=== PATIENT | male | born 1960 | race Caucasian/White ===

== ENCOUNTER 2025-04-13 12:17 | Inpatient (IN) ==
--- NOTE | 2025-04-13 13:10 | Emergency Department Note ---
Impression & Plan Bilateral leg weakness, Recurrent falls ED Provider Note HISTORY OF PRESENT ILLNESS: Patient is a 64-year-old male presenting with bilateral lower extremity weakness and recurrent falls. Patient reports that over the last few weeks he has been having significant progressive weakness in his bilateral lower extremities. He states that he has been falling frequently. He last fell about 2 weeks ago and was in the [place] emergency department "for a number of days because my CK was so high." He states that he was laying on the ground for over 3 days because he could not get up secondary to his leg weakness. He states that since his discharge from [facility], he has been having recurrent falls. He states his bilateral legs suddenly "give out on me." He states that the other day after an outpatient appointment he had an episode of urinary incontinence. Denies any bowel incontinence or saddle anesthesia. He denies any recent trauma to the back. Denies any new back pain. Denies any numbness or tingling down his extremities. He does report he has chronic neuropathy. He states that his primary care provider referred him to the emergency department secondary to his worsening weakness. On assessment, the patient is complaining of some shortness of breath and is requesting a breathing treatment. He reports a history of asthma. He denies any chest pain, shortness of breath or lightheadedness prior to his falls. He reports that "my legs just randomly give out on me." Denies any fevers or chills. ROS: as above PHYSICAL EXAM: Constitutional: Patient appears in no acute distress. Morbidly obese HENT: Head: Normocephalic and atraumatic. Eyes: EOMI, PERRL Mouth/Throat: Mucous membranes moist. Neck: Trachea midline. Neck supple. Cardiovascular: RRR, No murmurs, rubs or gallops. Intact distal pulses. Pulmonary/Chest: No respiratory distress. Breath sounds clear and equal bilaterally. No wheezes or rales. Abdominal: Abdomen soft, no tenderness, rebound or guarding. Back: No midline spinal tenderness, no paraspinal tenderness, no CVA tenderness. Patient is able to straight leg raise bilaterally. Musculoskeletal: Noted to have skin tears to the lateral bilateral lower legs. Skin: Warm and dry. No rash, erythema, pallor or cyanosis Psychiatric: Appropriate mood and affect for situation. Neurological: Alert and keenly responsive. CN II-XII grossly intact, moving all extremities equally and fully. MDM: - Vitals signs stable. - History obtained via patient. History as above. - Chronic conditions affecting care: HTN; morbid obesity - Differential diagnoses include, but are not limited to: Herniated disc; UTI; CVA; cauda equina; deconditioning - Order placed for continuous cardiac monitoring. At this time, monitor showed rate of 87 bpm with normal sinus rhythm, per my interpretation. - External medical records reviewed. [facility]. Patient had called his primary care provider's office today and was referred to the emergency department given that he is having diffuse weakness and lower extremity weakness. He was referred by his primary doctor for further workup. [facility] vascular surgery office visit note dated 04/08/2025 was reviewed. Patient was seen in clinic after having cardiac duplex ultrasounds during his admission to [facility] on 03/27/2025 that showed less than 50% ICA stenosis bilaterally. He had a creatinine of 0.9 and a CK of 199 on discharge from [facility]. - Laboratory workup interpreted by myself showed leukocytosis (WBC 15.76) with neutrophil predominance; slight hyponatremia (Na 133); elevated CK (319); normal creatinine; normal lipase - UA negative for infection - Patient had just over 300 cc urine in his bladder and after voiding his postvoid residual was 0 cc. - MRI lumbar spine wo contrast showed advanced lumbosacral spondylosis and diffuse disc bulging and degenerative disc disease. - Discussion was had with medical case worker about patient's case and need for admission - Hospitalist consulted for admission - Patient admitted to [facility] hospitalist service for further evaluation and management. ASSESSMENT AND PLAN: Diagnosis: Bilateral leg weakness; recurrent falls Plan: Admit Past Med/Surg History Problem List (Updated 04/13/25 @ 14:31 by Nadine Moran MD) Recurrent falls (Acute) Bilateral leg weakness (Acute) Positive colorectal cancer screening using Cologuard test Medical History Hx of tinnitus Nausea and vomiting after administration of anesthetic agent "many years ago, after cystoscopy" SOB (shortness of breath) on exertion per pt. "occasionally, certain things affect it like the cold" Diabetes mellitus, type 2 NIDDM Hx of urinary frequency "higher his blood sugar is, worse it is" Hx of hyperlipidemia History of hypertension History of asthma daily inh x2, prn inh Chronic back pain hx "bad back" L4-L5, especially when he walks over 100ft. Surgical History Hx of cystoscopy "did some cutting inside to open things up" Hx of tooth extraction Hx of hemorrhoidectomy (1999) Hx of colonoscopy (1999) History of total right hip replacement ~2009 Social History Smoking Status: Never smoker Second Hand Exposure: No; Do You Dip or Chew Tobacco: No; Hx Alcohol Use: Yes Hx Substance Use: No Preferred Language: Austrian Communication Ability: Effective Ethnographic Materials Conservator Required: No Beliefs That Will Affect Care: None Current Living Situation: Alone Feels Safe at Home: Yes Assistive Devices: Glasses, Scooter/Electric Scooter and Stair Lift Allergies Allergies Allergy/AdvReac Type Severity Reaction Status Date / Time Sulfa (Sulfonamide Allergy Intermediate BLEED Verified 10/18/24 09:42 Antibiotics) celecoxib [From Celebrex] Allergy GI bleed Verified 10/18/24 09:42 morphine AdvReac Intermediate NO EFFECT Verified 10/18/24 09:42 COVID-19 (SARS-CoV-2) AdvReac leg Verified 10/18/24 09:42 vaccine, harsha swelling/pain Home Meds Home Medications Medication Instructions Recorded Confirmed albuterol sulfate 90 mcg/actuation 2 puff inhalation Q6H PRN 10/10/24 10/18/24 aerosol inhaler Shortness Of Breath atorvastatin 20 mg tablet 20 mg PO HS 10/10/24 10/18/24 budesonide 180 mcg/actuation 2 inh inhalation BID 10/10/24 10/18/24 breath activated powder inhaler (Pulmicort Flexhaler) lisinopril 20 mg tablet 20 mg PO QAM 10/10/24 10/18/24 metformin 1,000 mg tablet 1,000 mg PO BID 10/10/24 10/18/24 salmeterol 50 mcg/dose blister 1 inh inhalation BID 10/10/24 10/18/24 powder for inhalation (Serevent Diskus) Results & Data (ED) Vital Signs Vital Signs - 24 hr 04/13/25 12:29 04/13/25 13:35 04/13/25 14:00 Temperature 36.6 C Temperature Source Temporal Artery Scan Pulse Rate 78 Pulse Rate [Apical] 87 Respiratory Rate 18 18 Respiratory Effort / Characteristics Non-Labored Spontaneous Respiratory Depth Normal Respiratory Pattern Regular Blood Pressure 132/69 Blood Pressure [Right Arm] 124/82 Blood Pressure Mean 90 Blood Pressure Mean [Right Arm] 96 Pulse Oximetry 95 99 96 Oxygen Delivery Method Room Air Room Air Room Air Sepsis Recent Fever Within 48 Hours No Sepsis New/Unexplained Change in Mental Status No Sepsis Action Taken by Nursing No Action Required Laboratory Data 04/13/25 13:05 04/13/25 13:05 Lab Results 04/13/25 04/13/25 Range/Units 13:05 Unknown WBC 15.76 H (4.8-10.8) K/ul RBC 4.26 L (4.70-6.10) M/uL Hgb 11.7 L (14.0-18.0) g/dl Hct 36.5 L (42.0-52.0) % MCV 85.7 (80.0-100.0) fL MCH 27.5 (25.0-34.0) pg MCHC 32.1 (32.0-36.0) g/dL RDW Std Deviation 43.9 (36.4-46.3) fL RDW Coeff of Yane 14.3 (11.5-14.5) % Plt Count 322 (130-400) K/uL MPV 8.8 L (9.4-12.4) fL Immature Gran % (Auto) 0.8 % Neut % (Auto) 80.9 % Lymph % (Auto) 4.8 % [place] % (Auto) 12.4 % Eos % (Auto) 0.6 % Baso % (Auto) 0.5 % Neut # (Auto) 12.76 H (1.40-6.50) K/uL Lymph # (Auto) 0.76 L (1.20-3.40) K/uL [place] # (Auto) 1.95 H (0.11-0.59) K/uL Eos # (Auto) 0.09 (0.00-0.50) K/uL Baso # (Auto) 0.08 (0.00-0.20) K/uL Immature Gran # (Auto) 0.12 (0.01-0.20) K/uL Sodium 133 L (136-145) mmol/L Potassium 4.2 (3.5-5.1) mmol/L Chloride 99 (98-107) mmol/L Carbon Dioxide 29 (21-32) mmol/L Anion Gap 5 (3-11) BUN 10 (6-23) mg/dl Creatinine 1.01 (0.6-1.4) mg/dl Est Cr Clr Drug Dosing Not Reportable eGFR 82.53 BUN/Creatinine Ratio 9.9 L (10-20) Glucose 174 H (70-99(Fasting)) mg/dl Calcium 8.6 (8.6-10.3) mg/dl Total Bilirubin 0.8 (0.2-1.0) mg/dl AST 15 (13-39) U/L ALT 9 (7-52) U/L Alkaline Phosphatase 55 (34-104) U/L Total Creatine Kinase 319 H (30-223) U/L Total Protein 7.4 (6.0-8.3) gm/dl Albumin 3.6 (3.4-5.0) gm/dl Globulin 3.8 (2.5-4.0) gm/dl Albumin/Globulin Ratio 0.9 (0.9-2) Lipase 14 (11-82) U/L Urine Color Yellow Urine Appearance Clear (Clear) Urine pH 5.5 (4.5-7.5) Ur Specific [place] 1.018 (1.000-1.030) Urine Protein 1+ H (Negative) Urine Glucose (UA) Negative (Negative) Urine Ketones Negative (Negative) Urine Blood Negative (Negative) Urine Nitrite Negative (Negative) Urine Bilirubin Negative (Negative) Urine Urobilinogen Negative (Negative) Ur Leukocyte Esterase 2+ H (Negative) Urine WBC (Auto) 21-50 H (0-5) /hpf Urine RBC (Auto) 0-2 (0-2) /hpf U Hyaline Cast (Auto) 0-2 (0-2) /lpf U Epithel Cells (Auto) 3-5 H (0-2) /hpf Urine Bacteria (Auto) None Seen (None Seen) Urine Comment Administered Medications Discontinued Medications Albuterol (Albut/Ipratrop 3mg/0.5mg Neb 3 Ml Vial) 3 ml NEB NOW STA; Protocol Stop: 04/13/25 13:06 Last Admin: 04/13/25 13:19 Dose: 3 ml Documented By: [facility] Imaging Data Radiologist's Impression: Lumbar Spine MRI 04/13/25 13:06 MRI OF THE LUMBAR SPINE WITHOUT IV CONTRAST CLINICAL HISTORY: Lower extremity weakness. COMPARISON STUDY: No priors. TECHNIQUE: MRI of the lumbar spine is performed utilizing various T1 and T2- weighted sequences in the axial and sagittal planes. IV contrast was not administered for this examination. The examination is degraded by motion artifact. FINDINGS: Lumbar spine: Marrow signal intensity is heterogeneous. Vertebral body height is maintained throughout the lumbar spine. There is minimal retrolisthesis at L2- L3. Alignment is otherwise preserved. There is straightening of the lumbar lordosis. Anterior and lateral marginal osteophytes are seen throughout. There is no evidence of spondylolysis. The transverse and spinous processes appear intact. No destructive bony lesion is seen. Chronic degenerative endplate change is noted at all lumbar levels. There is mild endplate edema at T12-L1, L3-L4, L4-L5. Intervertebral discs: Disc desiccation is seen throughout the lumbar spine. There is moderate to severe loss of height at all lumbar levels. Spinal cord: The imaged spinal cord is normal in morphology and signal intensity. The conus medullaris terminates at the T12-L1 space. The nerve roots of the cauda equina are normal in morphology. T12-L1: There is broad-based posterior disc bulge. No significant acquired compromise of the central canal is seen. Lateral disc bulges causing bilateral subarticular stenosis. In conjunction with facet arthropathy there is mild right and moderate left neural foraminal stenosis. L1-L2: There is broad-based posterior disc bulge which abuts the transiting nerve roots. No significant central canal stenosis is seen. Lateral disc bulges cause bilateral subarticular stenosis. In conjunction with facet arthropathy there is moderate bilateral neural foraminal stenosis. L2-L3: There is broad-based posterior disc bulge which abuts the transiting nerve roots. No significant central canal stenosis is seen. There is a far lateral left-sided disc extrusion which causes subarticular stenosis and impinges on the exiting left L2 nerve root. There is a small right lateral disc bulge. In conjunction with facet arthropathy there is moderate left and mild right neural foraminal stenosis. L3-L4: There is broad-based posterior disc bulge with annular fissure which abuts the transiting nerve roots. In conjunction with hypertrophy of the ligamentum flavum there is mild to moderate central canal stenosis at this level with a minimum AP canal diameter of 6.5 mm. Far lateral disc bulges cause bilateral subarticular stenosis and may impinge on the exiting bilateral L3 nerve roots. In conjunction with facet arthropathy there is severe right and mild left neural foraminal stenosis. L4-L5: There is broad-based posterior disc bulge which abuts the descending nerve roots. There is mild central canal stenosis at this level with a minimum AP diameter of 8mm. There is a far left lateral disc extrusion in a right lateral disc bulge which causes bilateral subarticular stenosis. There is likely impingement on the exiting bilateral L4 nerve roots. In conjunction with facet arthropathy there is moderate to severe bilateral neural foraminal stenosis. L5-S1: There is a left posterolateral disc extrusion with annular fissure. No significant central canal stenosis is seen. The left lateral component of the disc bulge causes subarticular stenosis with impingement on the exiting left L5 nerve root. The right lateral disc bulge abuts the exiting right L5 nerve root. In conjunction with facet arthropathy there is severe left and moderate right neural foraminal stenosis. Sacrum: The imaged sacrum is normal in morphology and signal intensity. Soft tissues: There is mild fatty atrophy of the paraspinous musculature. The right kidney is not clearly identified. A subcentimeter left renal cyst is incidentally noted. The retroperitoneal structures are otherwise grossly unremarkable but incompletely evaluated. IMPRESSION: 1. Advanced lumbosacral spondylosis as above. See discussion for detailed level by level analysis. 2. Degenerative disc disease as above with associated endplate change. 3. No destructive bony lesion is seen. Electronically signed by: Hugh Palumbo M.D. 04/13/2025 2:51 PM Discharge Plan Visit Data Chief Complaint: Leg Weakness, Bilateral Stated Complaint: UNABLE TO USE LOWER HALF OF BODY ED Provider: Nadine Moran Discharge Problem: Bilateral leg weakness, Recurrent falls Condition: Fair Forms Stand Alone Forms: My [facility] Prescriptions Prescriptions: No Action atorvastatin 20 mg Tablet 20 mg PO HS lisinopril 20 mg Tablet 20 mg PO QAM metformin 1,000 mg Tablet 1,000 mg PO BID Serevent Diskus 50 mcg/dose Blister With Device 1 inh INHALATION BID albuterol sulfate 90 mcg/actuation Hfa Aerosol Inhaler 2 puff INHALATION Q6H PRN (Reason: Shortness Of Breath) Pulmicort Flexhaler 180 mcg/actuation Aerosol Powdr Breath Activated 2 inh INHALATION BID Referrals Referrals: Pastor Sheth MD [Primary Care Provider] -
[2025-04-13] MEDS: ALBUT/IPRATROP 3MG/0.5MG NEB 3 ML VIAL NEB STA (13:19)
[2025-04-13 13:26] LABS: Hematocrit (blood only) 36.5 % (42.0-52.0); Hemoglobin 11.7 g/dl (14.0-18.0); Immature Granulocytes # (auto) 0.12 K/uL (0.01-0.20); Immature Granulocytes % (auto) 0.8 %; Mean Corpuscular Hemoglobin 27.5 pg (25.0-34.0); Mean Corpuscular Volume 85.7 fL (80.0-100.0); Platelet Count 322 K/uL (130-400); RDW Standard Deviation 43.9 fL (36.4-46.3); Red Blood Count 4.26 M/uL (4.70-6.10); White Blood Count 15.76 K/ul (4.8-10.8)
[2025-04-13 13:44] LABS: Alanine Aminotransferase 9 U/L (7-52); Albumin Globulin Ratio 0.9 (0.9-2); Albumin Level 3.6 gm/dl (3.4-5.0); Alkaline Phosphatase 55 U/L (34-104); Anion Gap 5 (3-11); Bilirubin,Total 0.8 mg/dl (0.2-1.0); Blood Urea Nitrogen 10 mg/dl (6-23); Calcium 8.6 mg/dl (8.6-10.3); Carbon Dioxide 29 mmol/L (21-32); Chloride 99 mmol/L (98-107); Globulin 3.8 gm/dl (2.5-4.0); Glucose 174 mg/dl (70-99(Fasting)); Lipase 14 U/L (11-82); Potassium 4.2 mmol/L (3.5-5.1); Sodium 133 mmol/L (136-145); Total Protein 7.4 gm/dl (6.0-8.3)
[2025-04-13 14:44] LABS: Creatine Kinase 319 U/L (30-223)
[2025-04-13 14:48] LABS: Appearance Urine Clear (Clear); Bacteria Urine Automated None Seen (None Seen); Cast Urine Automated 0-2 /lpf (0-2); Glucose Urine UA Negative (Negative); RBC Urine Automated 0-2 /hpf (0-2); WBC Urine Automated 21-50 /hpf (0-5)
--- NOTE | 2025-04-13 14:53 | Magnetic Resonance Report ---
MRI OF THE LUMBAR SPINE WITHOUT IV CONTRAST CLINICAL HISTORY: Lower extremity weakness. COMPARISON STUDY: No priors. TECHNIQUE: MRI of the lumbar spine is performed utilizing various T1 and T2-weighted sequences in the axial and sagittal planes. IV contrast was not administered for this examination. The examination is degraded by motion artifact. FINDINGS: Lumbar spine: Marrow signal intensity is heterogeneous. Vertebral body height is maintained throughou t the lumbar spine. There is minimal retrolisthesis at L2-L3. Alignment is otherwise preserved. There is straightening of the lumbar lordosis. Anterior and lateral marginal osteophytes are seen througho ut. There is no evidence of spondylolysis. The transverse and spinous processes appear intact. No morris tructive bony lesion is seen. Chronic degenerative endplate change is noted at all lumbar levels. The re is mild endplate edema at T12-L1, L3-L4, L4-L5. Intervertebral discs: Disc desiccation is seen throughout the lumbar spine. There is moderate to charlee re loss of height at all lumbar levels. Spinal cord: The imaged spinal cord is normal in morphology and signal intensity. The conus medullari s terminates at the T12-L1 space. The nerve roots of the cauda equina are normal in morphology. T12-L1: There is broad-based posterior disc bulge. No significant acquired compromise of the central canal is seen. Lateral disc bulges causing bilateral subarticular stenosis. In conjunction with facet arthropathy there is mild right and moderate left neural foraminal stenosis. L1-L2: There is broad-based posterior disc bulge which abuts the transiting nerve roots. No significa nt central canal stenosis is seen. Lateral disc bulges cause bilateral subarticular stenosis. In conj unction with facet arthropathy there is moderate bilateral neural foraminal stenosis. L2-L3: There is broad-based posterior disc bulge which abuts the transiting nerve roots. No significa nt central canal stenosis is seen. There is a far lateral left-sided disc extrusion which causes suba rticular stenosis and impinges on the exiting left L2 nerve root. There is a small right lateral disc bulge. In conjunction with facet arthropathy there is moderate left and mild right neural foraminal stenosis. L3-L4: There is broad-based posterior disc bulge with annular fissure which abuts the transiting nerv e roots. In conjunction with hypertrophy of the ligamentum flavum there is mild to moderate central c anal stenosis at this level with a minimum AP canal diameter of 6.5 mm. Far lateral disc bulges cause bilateral subarticular stenosis and may impinge on the exiting bilateral L3 nerve roots. In conjunct ion with facet arthropathy there is severe right and mild left neural foraminal stenosis. L4-L5: There is broad-based posterior disc bulge which abuts the descending nerve roots. There is mil d central canal stenosis at this level with a minimum AP diameter of 8mm. There is a far left lateral disc extrusion in a right lateral disc bulge which causes bilateral subarticular stenosis. There is likely impingement on the exiting bilateral L4 nerve roots. In conjunction with facet arthropathy the re is moderate to severe bilateral neural foraminal stenosis. L5-S1: There is a left posterolateral disc extrusion with annular fissure. No significant central can al stenosis is seen. The left lateral component of the disc bulge causes subarticular stenosis with i mpingement on the exiting left L5 nerve root. The right lateral disc bulge abuts the exiting right L5 nerve root. In conjunction with facet arthropathy there is severe left and moderate right neural for aminal stenosis. Sacrum: The imaged sacrum is normal in morphology and signal intensity. Soft tissues: There is mild fatty atrophy of the paraspinous musculature. The right kidney is not susie andrew identified. A subcentimeter left renal cyst is incidentally noted. The retroperitoneal structure s are otherwise grossly unremarkable but incompletely evaluated. IMPRESSION: 1. Advanced lumbosacral spondylosis as above. See discussion for detailed level by level analysis. 2. Degenerative disc disease as above with associated endplate change. 3. No destructive bony lesion is seen. Electronically signed by: Hugh Palumbo M.D. 04/13/2025 2:51 PM
[2025-04-13] MEDS ORDERED: DEXTROSE 50% 50 ML SYRINGE IV PRN (15:43)
[2025-04-13] MEDS ORDERED: GLUCAGON FOR INJ 1 MG VIAL SQ PRN (15:43)
[2025-04-13] MEDS ORDERED: GLUCOSE 10 TAB/TUBE PO PRN (15:43)
[2025-04-13] MEDS ORDERED: CARBOHYDRATES FOR HYPOGLYCEMIA PO PRN (15:43)
[2025-04-13] MEDS ORDERED: GLUCOSE 40% GEL 15 GM TUBE PO PRN (15:43)
--- NOTE | 2025-04-13 15:45 | History & Physical Report ---
Date of Service April 13, 2025 Assessment & Plan (1) Hx of tinnitus: (2) Nausea and vomiting after administration of anesthetic agent: (3) SOB (shortness of breath) on exertion: (4) Diabetes mellitus, type 2: (5) Hx of urinary frequency: (6) Hx of hyperlipidemia: (7) History of hypertension: (8) History of asthma: (9) Chronic back pain: (10) Recurrent falls: (11) Bilateral leg weakness: Plan The patient is a 64-year-old male who presented to the ED on 04/13/2025 with complaints of bilateral lower extremity weakness and recurrent falls Bilateral lower extremity weakness Recurrent falls Advanced lumbosacral spondylosis Worsening over the past 3 weeks, lumbar MRI showed lumbosacral spondylosis, with multiple disc protrusions at different levels Consult ortho-spine for further input, also reports upper extremity weakness, check head MRI/cervical spine/thoracic spine MRI PT/OT Bilateral lower extremity cellulitis: Bilateral redness noted on lower extremities, completed a course of p.o. amoxicillin a week and a half ago Start IV Vanco/cefepime, blood cultures pending, check procalcitonin/lactic acid, consult wound care Right foot wound, rule out osteomyelitis: Check right foot x-ray and right foot MRI to rule out osteomyelitis Consider podiatry consult Hx asthma: Not in acute exacerbation, continue home inhalers Hx DM2: Managed on metformin - hold while inpt; check A1c, SSI/4 times daily BGM A total of 55 minutes were spent on chart review/reviewing diagnostic data/results and plan of care/discussion with consultants Full code DVT prophylaxis: Lovenox History of Present Illness Chief Complaint: Frequent falls, bilateral lower extremity weakness Primary Care Provider: Pastor Sheth MD The patient is a 64-year-old male with a past medical history of HLD, DM2, on oral diabetic medications, HTN, asthma who presents to the ED on 04/13/2025 with complaints of worsening bilateral lower extremity weakness and recurrent falls over the past 3 weeks. Patient reported his first fall being about 3 weeks ago and subsequently having another fall 2 weeks ago that required an emergency room visit to [facility]. He reported that they x-rayed his entire spine and there were no acute injuries. He did report that they had to cut his jeans all since he was lying on the floor for over 2 hours at that point and due to skin breakdown, he did have some raw skin on his left leg after his close were removed. Overall, his weakness remained about the same. He reports feeling like his legs just give out when he walks. He reported yesterday that the weakness became worse. He fell yesterday and laid on the ground for about an hour. He then started to report that he was having some upper extremity w eakness as well. He was placed on amoxicillin for 10 days following his ER visit at [facility] for his leg wound. He reports minimal improvement with that. Reports his sugars have overall been controlled. He denies any numbness/tingling. He denies any shortness of breath/chest pain/fever/chills/nausea/vomiting/diarrhea/abdominal pain. He does not smoke. Denies any alcohol use. On arrival to the ED, for WBC 15, hemoglobin 11, neutrophils 12.76, sodium 133, glucose 174, T CK3 19, urinalysis fairly unremarkable. On exam, patient had bilateral lower extremity redness consistent with possible cellulitis and a right toe callus that he reports has been present for months. Denies any pain associated with this. Patient had a lumbar MRI that showed: T12-L1: There is broad-based posterior disc bulge. No significant acquired compromise of the central canal is seen. Lateral disc bulges causing bilateral subarticular stenosis. In conjunction with facet arthropathy there is mild right and moderate left neural foraminal stenosis. L1-L2: There is broad-based posterior disc bulge which abuts the transiting nerve roots. No significant central canal stenosis is seen. Lateral disc bulges cause bilateral subarticular stenosis. In conjunction with facet arthropathy there is moderate bilateral neural foraminal stenosis. L2-L3: There is broad-based posterior disc bulge which abuts the transiting nerve roots. No significant central canal stenosis is seen. There is a far lateral left-sided disc extrusion which causes subarticular stenosis and impinges on the exiting left L2 nerve root. There is a small right lateral disc bulge. In conjunction with facet arthropathy there is moderate left and mild right neural foraminal stenosis. L3-L4: There is broad-based posterior disc bulge with annular fissure which abuts the transiting nerve roots. In conjunction with hypertrophy of the ligamentum flavum there is mild to moderate central canal stenosis at this level with a minimum AP canal diameter of 6.5 mm. Far lateral disc bulges cause bilateral subarticular stenosis and may impinge on the exiting bilateral L3 nerve roots. In conjunction with facet arthropathy there is severe right and mild left neural foraminal stenosis. L4-L5: There is broad-based posterior disc bulge which abuts the descending nerve roots. There is mild central canal stenosis at this level with a minimum AP diameter of 8mm. There is a far left lateral disc extrusion in a right lateral disc bulge which causes bilateral subarticular stenosis. There is likely impingement on the exiting bilateral L4 nerve roots. In conjunction with facet arthropathy there is moderate to severe bilateral neural foraminal stenosis. L5-S1: There is a left posterolateral disc extrusion with annular fissure. No significant central canal stenosis is seen. The left lateral component of the disc bulge causes subarticular stenosis with impingement on the exiting left L5 nerve root. The right lateral disc bulge abuts the exiting right L5 nerve root. In conjunction with facet arthropathy there is severe left and moderate right neural foraminal stenosis. Sacrum: The imaged sacrum is normal in morphology and signal intensity. Soft tissues: There is mild fatty atrophy of the paraspinous musculature. The right kidney is not clearly identified. A subcentimeter left renal cyst is incidentally noted. The retroperitoneal structures are otherwise grossly unremarkable but incompletely evaluated. The patient will be admitted for further management of bilateral lower extremity weakness Allergies Allergy/AdvReac Type Severity Reaction Status Date / Time Sulfa (Sulfonamide Allergy Intermediate BLEED Verified 10/18/24 09:42 Antibiotics) celecoxib [From Celebrex] Allergy GI bleed Verified 10/18/24 09:42 morphine AdvReac Intermediate NO EFFECT Verified 10/18/24 09:42 COVID-19 (SARS-CoV-2) AdvReac leg Verified 10/18/24 09:42 vaccine, harsha swelling/pain Home Medications Medication Instructions Recorded Confirmed Type albuterol sulfate 90 mcg/actuation 2 puff inhalation Q6H PRN 10/10/24 10/18/24 History aerosol inhaler Shortness Of Breath atorvastatin 20 mg tablet 20 mg PO HS 10/10/24 10/18/24 History budesonide 180 mcg/actuation 2 inh inhalation BID 10/10/24 10/18/24 History breath activated powder inhaler (Pulmicort Flexhaler) lisinopril 20 mg tablet 20 mg PO QAM 10/10/24 10/18/24 History metformin 1,000 mg tablet 1,000 mg PO BID 10/10/24 10/18/24 History salmeterol 50 mcg/dose blister 1 inh inhalation BID 10/10/24 10/18/24 History powder for inhalation (Serevent Diskus) Past Med/Surg History Problem List (Updated 04/13/25 @ 14:31 by Nadine Moran MD) Recurrent falls (Acute) Bilateral leg weakness (Acute) Positive colorectal cancer screening using Cologuard test Medical History Hx of tinnitus Nausea and vomiting after administration of anesthetic agent "many years ago, after cystoscopy" SOB (shortness of breath) on exertion per pt. "occasionally, certain things affect it like the cold" Diabetes mellitus, type 2 NIDDM Hx of urinary frequency "higher his blood sugar is, worse it is" Hx of hyperlipidemia History of hypertension History of asthma daily inh x2, prn inh Chronic back pain hx "bad back" L4-L5, especially when he walks over 100ft. Surgical History Hx of cystoscopy "did some cutting inside to open things up" Hx of tooth extraction Hx of hemorrhoidectomy (1999) Hx of colonoscopy (1999) History of total right hip replacement ~2009 Social History Smoking Status: Never smoker Second Hand Exposure: No; Do You Dip or Chew Tobacco: No; Hx Alcohol Use: Yes Hx Substance Use: No Preferred Language: Kazakh Communication Ability: Effective Log Operations Coordinator Required: No Beliefs That Will Affect Care: None Current Living Situation: Alone Feels Safe at Home: Yes Assistive Devices: Glasses, Scooter/Electric Scooter and Stair Lift Review of Systems Review of Systems: All systems reviewed & are unremarkable except as noted in HPI & below Physical Exam Physical Exam: See addendum Results & Data Results & Data Vital Signs (Past 12 Hours) Vital Signs Temp Pulse Pulse Resp BP BP Pulse Ox 04/13/25 14:00 96 04/13/25 13:35 87 18 124/82 99 04/13/25 12:29 36.6 C 78 18 132/69 95 O2 Del Method 04/13/25 14:00 Room Air 04/13/25 13:35 Room Air 04/13/25 12:29 Room Air Diagnostic Findings Laboratory Results WBC 15.76 K/ul (4.8-10.8) H 04/13/25 13:05 RBC 4.26 M/uL (4.70-6.10) L 04/13/25 13:05 Hgb 11.7 g/dl (14.0-18.0) L 04/13/25 13:05 Hct 36.5 % (42.0-52.0) L 04/13/25 13:05 MCV 85.7 fL (80.0-100.0) 04/13/25 13:05 MCH 27.5 pg (25.0-34.0) 04/13/25 13:05 MCHC 32.1 g/dL (32.0-36.0) 04/13/25 13:05 RDW Std Deviation 43.9 fL (36.4-46.3) 04/13/25 13:05 RDW Coeff of Yane 14.3 % (11.5-14.5) 04/13/25 13:05 Plt Count 322 K/uL (130-400) 04/13/25 13:05 MPV 8.8 fL (9.4-12.4) L 04/13/25 13:05 Immature Gran % (Auto) 0.8 % 04/13/25 13:05 Neut % (Auto) 80.9 % 04/13/25 13:05 Lymph % (Auto) 4.8 % 04/13/25 13:05 Rogers % (Auto) 12.4 % 04/13/25 13:05 Eos % (Auto) 0.6 % 04/13/25 13:05 Baso % (Auto) 0.5 % 04/13/25 13:05 Neut # (Auto) 12.76 K/uL (1.40-6.50) H 04/13/25 13:05 Lymph # (Auto) 0.76 K/uL (1.20-3.40) L 04/13/25 13:05 Rogers # (Auto) 1.95 K/uL (0.11-0.59) H 04/13/25 13:05 Eos # (Auto) 0.09 K/uL (0.00-0.50) 04/13/25 13:05 Baso # (Auto) 0.08 K/uL (0.00-0.20) 04/13/25 13:05 Immature Gran # (Auto) 0.12 K/uL (0.01-0.20) 04/13/25 13:05 Sodium 133 mmol/L (136-145) L 04/13/25 13:05 Potassium 4.2 mmol/L (3.5-5.1) 04/13/25 13:05 Chloride 99 mmol/L (98-107) 04/13/25 13:05 Carbon Dioxide 29 mmol/L (21-32) 04/13/25 13:05 Anion Gap 5 (3-11) 04/13/25 13:05 BUN 10 mg/dl (6-23) 04/13/25 13:05 Creatinine 1.01 mg/dl (0.6-1.4) 04/13/25 13:05 Est Cr Clr Drug Dosing Not Reportable 04/13/25 13:05 eGFR 82.53 04/13/25 13:05 BUN/Creatinine Ratio 9.9 (10-20) L 04/13/25 13:05 Glucose 174 mg/dl (70-99(Fasting)) H 04/13/25 13:05 Calcium 8.6 mg/dl (8.6-10.3) 04/13/25 13:05 Total Bilirubin 0.8 mg/dl (0.2-1.0) 04/13/25 13:05 AST 15 U/L (13-39) 04/13/25 13:05 ALT 9 U/L (7-52) 04/13/25 13:05 Alkaline Phosphatase 55 U/L (34-104) 04/13/25 13:05 Total Creatine Kinase 319 U/L (30-223) H 04/13/25 13:05 Total Protein 7.4 gm/dl (6.0-8.3) 04/13/25 13:05 Albumin 3.6 gm/dl (3.4-5.0) 04/13/25 13:05 Globulin 3.8 gm/dl (2.5-4.0) 04/13/25 13:05 Albumin/Globulin Ratio 0.9 (0.9-2) 04/13/25 13:05 Lipase 14 U/L (11-82) 04/13/25 13:05 Urine Color Yellow 04/13/25 Unknown Urine Appearance Clear (Clear) 04/13/25 Unknown Urine pH 5.5 (4.5-7.5) 04/13/25 Unknown Ur Specific [place] 1.018 (1.000-1.030) 04/13/25 Unknown Urine Protein 1+ (Negative) H 04/13/25 Unknown Urine Glucose (UA) Negative (Negative) 04/13/25 Unknown Urine Ketones Negative (Negative) 04/13/25 Unknown Urine Blood Negative (Negative) 04/13/25 Unknown Urine Nitrite Negative (Negative) 04/13/25 Unknown Urine Bilirubin Negative (Negative) 04/13/25 Unknown Urine Urobilinogen Negative (Negative) 04/13/25 Unknown Ur Leukocyte Esterase 2+ (Negative) H 04/13/25 Unknown Urine WBC (Auto) 21-50 /hpf (0-5) H 04/13/25 Unknown Urine RBC (Auto) 0-2 /hpf (0-2) 04/13/25 Unknown U Hyaline Cast (Auto) 0-2 /lpf (0-2) 04/13/25 Unknown U Epithel Cells (Auto) 3-5 /hpf (0-2) H 04/13/25 Unknown Urine Bacteria (Auto) None Seen (None Seen) 04/13/25 Unknown Urine Comment 04/13/25 Unknown Impressions Lumbar Spine MRI 04/13/25 13:06 MRI OF THE LUMBAR SPINE WITHOUT IV CONTRAST CLINICAL HISTORY: Lower extremity weakness. COMPARISON STUDY: No priors. TECHNIQUE: MRI of the lumbar spine is performed utilizing various T1 and T2-we ighted sequences in the axial and sagittal planes. IV contrast was not administered for this examination. The examination is degraded by motion artifact. FINDINGS: Lumbar spine: Marrow signal intensity is heterogeneous. Vertebral body height is maintained throughout the lumbar spine. There is minimal retrolisthesis at L2- L3. Alignment is otherwise preserved. There is straightening of the lumbar lordosis. Anterior and lateral marginal osteophytes are seen throughout. There is no evidence of spondylolysis. The transverse and spinous processes appear intact. No destructive bony lesion is seen. Chronic degenerative endplate change is noted at all lumbar levels. There is mild endplate edema at T12-L1, L3-L4, L4-L5. Intervertebral discs: Disc desiccation is seen throughout the lumbar spine. There is moderate to severe loss of height at all lumbar levels. Spinal cord: The imaged spinal cord is normal in morphology and signal intensity. The conus medullaris terminates at the T12-L1 space. The nerve roots of the cauda equina are normal in morphology. T12-L1: There is broad-based posterior disc bulge. No significant acquired compromise of the central canal is seen. Lateral disc bulges causing bilateral subarticular stenosis. In conjunction with facet arthropathy there is mild right and moderate left neural foraminal stenosis. L1-L2: There is broad-based posterior disc bulge which abuts the transiting nerve roots. No significant central canal stenosis is seen. Lateral disc bulges cause bilateral subarticular stenosis. In conjunction with facet arthropathy there is moderate bilateral neural foraminal stenosis. L2-L3: There is broad-based posterior disc bulge which abuts the transiting nerve roots. No significant central canal stenosis is seen. There is a far lateral left-sided disc extrusion which causes subarticular stenosis and impinges on the exiting left L2 nerve root. There is a small right lateral disc bulge. In conjunction with facet arthropathy there is moderate left and mild right neural foraminal stenosis. L3-L4: There is broad-based posterior disc bulge with annular fissure which abuts the transiting nerve roots. In conjunction with hypertrophy of the ligamentum flavum there is mild to moderate central canal stenosis at this level with a minimum AP canal diameter of 6.5 mm. Far lateral disc bulges cause bilateral subarticular stenosis and may impinge on the exiting bilateral L3 nerve roots. In conjunction with facet arthropathy there is severe right and mild left neural foraminal stenosis. L4-L5: There is broad-based posterior disc bulge which abuts the descending nerve roots. There is mild central canal stenosis at this level with a minimum AP diameter of 8mm. There is a far left lateral disc extrusion in a right lateral disc bulge which causes bilateral subarticular stenosis. There is likely impingement on the exiting bilateral L4 nerve roots. In conjunction with facet arthropathy there is moderate to severe bilateral neural foraminal stenosis. L5-S1: There is a left posterolateral disc extrusion with annular fissure. No significant central canal stenosis is seen. The left lateral component of the disc bulge causes subarticular stenosis with impingement on the exiting left L5 nerve root. The right lateral disc bulge abuts the exiting right L5 nerve root. In conjunction with facet arthropathy there is severe left and moderate right neural foraminal stenosis. Sacrum: The imaged sacrum is normal in morphology and signal intensity. Soft tissues: There is mild fatty atrophy of the paraspinous musculature. The right kidney is not clearly identified. A subcentimeter left renal cyst is incidentally noted. The retroperitoneal structures are otherwise grossly unremarkable but incompletely evaluated. IMPRESSION: 1. Advanced lumbosacral spondylosis as above. See discussion for detailed level by level analysis. 2. Degenerative disc disease as above with associated endplate change. 3. No destructive bony lesion is seen. Electronically signed by: Hugh Palumbo M.D. 04/13/2025 2:51 PM Supervising Physician Co-Signing Physician Notes Presents with recurrent falls and wounds He was recently hospitalized at [place] for fall for which he was on the ground for over 1 day Reports b/l LE weakness and his legs giving out leading to fall Also reports UE weakness Has chronic peripheral neuropathy in both feet On exam, General: Obese ill appearing man, having chills Eyes: PERRL, conjunctivae normal, not pale, anicteric sclerae, EOM intact bilaterally ENMT: External ear and nose normal, oropharynx normal Respiratory: Normal resp effort, not in distress, on room air, CTA b/l Cardiovascular: RRR S1 S2 Gastrointestinal (Abdomen): Abdomen is soft, non-tender to palpation, normal bowel sounds Musculoskeletal: Multiple wounds on LE (L>R) with stained dressing, erythematous skin and tenderness. Wound on plantar surface of right foot Skin: LE wounds. Unable to assess wound on buttock at this time as patient unable to turn Neurologic: Alert and oriented x 3, reduced power in LE, sensory deficits in feet Psych: Normal mood and affect Lab notable for WBC of 15.76, Hb 11.7, Na 133, CK 319 Lumbar MRI noted DDD and moderate to severe neural foraminal stenosis at multiple levels Get Ortho spine consult In view of history, deficits, will get MRI brain, C and T-spine for better assessment Get MRI Rt foot to rule OM Wound care consult Has leukocytosis and having chills during eval Add on procal, lactate, get Blood cultures Start vanc and cefepime Check HbA1c ISS PT/OT eval Other plans as detailed by Michael RAY
[2025-04-13] MEDS ORDERED: VANCOMYCIN HCL / NSS 1,000 MG/270 ML BAG IV ONE (16:22)
[2025-04-13] MEDS ORDERED: VANCOMYCIN CONSULT ACTIVE PRN ×2 (16:22→18:12)
--- NOTE | 2025-04-13 17:29 | CT Scan Report ---
Technique: Axial computed tomography images were obtained of the brain without intravenous contrast. Findings: Small areas of decreased attenuation are seen within the periventricular white matter, likely representing chronic small vessel ischemic disease. There is no definite sign of acute or old infarction. No intracranial hemorrhage is evident. No definite mass lesion is seen on this noncontrast examination. There is no midline shift or other form of herniation. No hydrocephalus is seen. There is cavum septum pellucidum and cavum vergae, normal variants No fracture is identified. The orbits and the visualized paranasal sinuses appear unremarkable. The mastoid air cells appear clear. Impression: 1. Suspected mild chronic small vessel ischemic disease 2. No definite acute pathology Electronically signed by Pepe Light 04-13-2025 5:29 PM
[2025-04-13] MEDS: INSULIN ASPART PER UNIT CHARGE SC SCH (18:32)
--- NOTE | 2025-04-13 18:36 | Orthopedic Consultation ---
Date of Service April 13, 2025 Assessment & Plan (1) Lumbar spondylosis: (2) Lumbar radiculopathy: (3) Peripheral neuropathy: (4) Bilateral leg weakness: Plan Patient was examined this evening. After review of the lumbar spine these are mostly chronic degenerative changes, do not see any acute disc herniation or severe central canal stenosis at this. We certainly have significant edema and wounds to his lower extremity which would make ambulating difficult, he has no fixed motor deficit and is able to raise his legs off the bed and move without difficulty. He does report some symptoms consistent with a TIA in the past, there is already been an order placed for thoracic MRI, I will add a cervical MRI I to be complete. He reports he has been evaluated by vascular surgery at [facility] and told there is no sign of any arterial stenosis in the neck that would warrant intervention. Will continue to evaluate his spine, he does not have any consistent symptoms into the upper extremities however just reported intermittent weakness which appears to have resolved. I will evaluate for any sign of spinal cord compression in the cervical or thoracic region however current presentation is not consistent with fixed neurologic deficit from the spine. Given the intermittent and sudden nature of these episodes that resolved, may benefit from consult from neurology while I continue to workup possible spinal pathology. History of Present Illness Reason for Consultation: Intermittent lower extremity weakness Attending Physician: Ana Yanez MD Patient 64-year-old gentleman who comes in today admitted through the emergency department by the hospitalist seen. Reports he has had several episodes over the last few weeks where his legs gave out all of a sudden without warning. He relates 1 episode where he fell in the basement of his house, he was found lying on the floor for 2 to 3 days and admitted to [facility] with rhabdomyolysis elevated CK in the 8000 range. He reports that he was discharged after several days when his CK began to lower. He has multiple wounds on his lower extremities from laying in urine in his wet jeans, nails were cut off. He relates he sustained skin injuries to bilateral lower extremities at that time. He does state when he fell he used his upper extremities to pull himself to a phone to call an ambulance. He does report a sensation yesterday of upper extremity weakness however today has full strength in the upper extremities. He remains remedies. He was able to void in the emergency department and postvoid residual was 0 cc on bladder scan. Grossly he is able to move all extremities normally while laying in bed. Allergies Allergy/AdvReac Type Severity Reaction Status Date / Time celecoxib [From Celebrex] AdvReac Intermediate GI bleed Verified 04/13/25 17:40 COVID-19 (SARS-CoV-2) AdvReac Intermediate leg Verified 04/13/25 17:40 vaccine, harsha swelling/pain morphine AdvReac Intermediate NO EFFECT Verified 04/13/25 17:40 Sulfa (Sulfonamide AdvReac Intermediate BLEED Verified 04/13/25 17:40 Antibiotics) Home Medications Medication Instructions Recorded Confirmed Type albuterol sulfate 90 mcg/actuation 2 puff inhalation Q6H PRN 10/10/24 04/13/25 History aerosol inhaler Shortness Of Breath atorvastatin 20 mg tablet 20 mg PO HS 10/10/24 04/13/25 History budesonide 180 mcg/actuation 2 inh inhalation BID 10/10/24 04/13/25 History breath activated powder inhaler (Pulmicort Flexhaler) lisinopril 20 mg tablet 20 mg PO QAM 10/10/24 04/13/25 History metformin 1,000 mg tablet 1,000 mg PO BID 10/10/24 04/13/25 History salmeterol 50 mcg/dose blister 1 inh inhalation BID 10/10/24 04/13/25 History powder for inhalation (Serevent Diskus) aspirin 81 mg tablet,delayed 81 mg PO DAILY 04/13/25 04/13/25 History release Past Med/Surg History Problem List (Updated 04/13/25 @ 18:34 by Hugh Saenz MD) Peripheral neuropathy Lumbar radiculopathy Lumbar spondylosis Recurrent falls (Acute) Bilateral leg weakness (Acute) Positive colorectal cancer screening using Cologuard test Medical History Hx of tinnitus Nausea and vomiting after administration of anesthetic agent "many years ago, after cystoscopy" SOB (shortness of breath) on exertion per pt. "occasionally, certain things affect it like the cold" Diabetes mellitus, type 2 NIDDM Hx of urinary frequency "higher his blood sugar is, worse it is" Hx of hyperlipidemia History of hypertension History of asthma daily inh x2, prn inh Chronic back pain hx "bad back" L4-L5, especially when he walks over 100ft. Surgical History Hx of cystoscopy "did some cutting inside to open things up" Hx of tooth extraction Hx of hemorrhoidectomy (1999) Hx of colonoscopy (1999) History of total right hip replacement ~2009 Social History Smoking Status: Never smoker Second Hand Exposure: No; Do You Dip or Chew Tobacco: No; Hx Alcohol Use: Yes Hx Substance Use: No Preferred Language: Iranian Communication Ability: Effective Prefabricator Required: No Beliefs That Will Affect Care: None Current Living Situation: Alone Feels Safe at Home: Yes Assistive Devices: Glasses, Scooter/Electric Scooter and Stair Lift Review of Systems All systems reviewed & are unremarkable except as noted in HPI & below. Physical Exam Constitutional: Well developed, appears stated age Psych: patient is coherent and answers questions appropriately, normal affect Eye: Normal gaze, no redness to sclera, pupils round and equal Pulm: Normal respiratory effort, no wheezing Cardiovascular: peripheral edema Skin shows bilateral lower extremity edema, ecchymoses, bandages to the lateral leg on the left, right foot ulcer 5/5 muscle strength with testing of deltoids, wrist extensors, triceps, finger flexion, and hand intrinsics Sensation intact to light touch in the C5-T1 dermatomes bilaterally 2+ reflexes at biceps, triceps, and brachioradialis bilaterally Negative Bowens sign bilaterally,negative Spurling test bilaterally Motor strength is 5/5 in bilateral hip flexors, quadriceps, tibialis anterior, extensor hallucis longus, and gastroc/soleus complex Diffuse peripheral neuropathy bilateral feet and legs below the knee which is chronic Results & Data Results & Data Laboratory Results . Diagnostic Findings MRI of the lumbar spine is available for review today and interpreted personally. Diffuse lumbar spondylosis with multiple levels of severe disc degeneration at all levels of the lumbar spine. See any severe central canal or lateral recess stenosis. Visualized portions of the spinal cord of the lower t horacic spine also did not show any signs of compression however inadequate study to evaluate the thoracic region completely. Multiple levels of foraminal stenosis worst at L3-4 and L4-5 with possible nerve root contact. There is adequate central canal narrowing throughout the lumbar spine. PG Care Time/CCT Total # of Minutes Spent Total Time Spent with Patient: Total time spent is greater than 50% in coordination of care (as documented) at patient's floor/unit and/or counseling patient: Coding Level of Care Code 55929 IN/OBS CONSULT LVL 4,60M Diagnoses Lumbar spondylosis M47.816 Lumbar radiculopathy M54.16 Peripheral polyneuropathy G62.9 Peripheral neuropathy type: polyneuropathy, unspecified Bilateral leg weakness R29.898 (3) Peripheral neuropathy Peripheral neuropathy type: polyneuropathy, unspecified Qualified Code(s): G62.9 - Polyneuropathy, unspecified
[2025-04-13 19:12] LABS: Hemoglobin A1C 8.2 % (4.5-5.6)
--- NOTE | 2025-04-13 19:25 | XRay Report ---
3 views of the right foot are submitted for review. Findings: No fracture or dislocation is seen. No significant arthritic changes are noted. No other osseous abnormality is identified. There are no radiopaque foreign bodies. Impression: Unremarkable radiographs of the right foot Electronically signed by Pepe Light 04-13-2025 7:25 PM
--- NOTE | 2025-04-13 21:19 | Magnetic Resonance Report ---
Exam(s): MRI HEAD Without Contrast EXAM: MR Head Without Intravenous Contrast CLINICAL HISTORY: weakness. TECHNIQUE: Magnetic resonance images of the head/brain without intravenous contrast in multiple planes. COMPARISON: CT head without contrast FINDINGS: Brain: Cavum septum pellucidum. Diffusion-weighted imaging is negative for acute or subacute infarct. There are a few punctate areas of abnormal T2 signal in the deep cerebral white matter most consistent with mild small vessel ischemic/degenerative changes. No hemorrhage. Ventricles: Unremarkable. No ventriculomegaly. Bones/joints: Unremarkable. No acute fracture. Sinuses: Unremarkable as visualized. No acute sinusitis. Mastoid air cells: Unremarkable as visualized. No mastoid effusion. Orbits: Unremarkable as visualized. IMPRESSION: No evidence of acute or subacute infarct. Electronically signed by: Gabo De Jesus MD 04/13/25 21:18 PM
--- NOTE | 2025-04-13 21:39 | Magnetic Resonance Report ---
Exam(s): MRI C SPINE EXAM: MR Cervical Spine Without Intravenous Contrast CLINICAL HISTORY: Lower extremity weakness. TECHNIQUE: Magnetic resonance images of the cervical spine without intravenous contrast in multiple planes. COMPARISON: No relevant prior studies available. FINDINGS: Vertebrae: Heterogeneous marrow signal noted involving the C3 through C6 vertebral bodies with suspected Modic endplate changes. There is reversal of the normal cervical lordosis, centered at C5 level. There is chronic anterior wedging involving C4 and C5 levels. There is 3 mm anterolisthesis involving C7 on T1 with mild unroofing of the disc posteriorly. No abnormal STIR signal to suggest an acute fracture. Spinal cord: The cervical cord is contoured by the cervical spine. However, there is normal signal of the cervical cord. Soft tissues: Unremarkable. DISCS/SPINAL CANAL/NEURAL FORAMINA: C2-C3: Unremarkable. No significant disc disease. No stenosis. C3-C4: C3-4: Diffuse disc marginal osteophyte complex identified with posterior hypertrophic changes. There is effacement of the ventral CSF collar without significant canal stenosis. There is severe right and moderate left neural foraminal encroachment. C4-C5: C4-5: Diffuse disc marginal osteophyte complex noted. There is effacement of the ventral CSF collar without significant canal stenosis. There is moderately severe right and moderate left neural foraminal encroachment. C5-C6: C5-6: Diffuse disc marginal osteophyte complex identified. There is moderate canal narrowing with minimal preservation of the CSF collar dorsally. The AP diameter of the canal measures 7.7 mm. There is severe left and moderately severe right neural foraminal encroachment. C6-C7: C6-7: Diffuse disc marginal osteophyte complex noted with broad-base posterior disc bulge, measuring approximately 3-4 mm. Severe bilateral neural foraminal encroachment. No stenosis. C7-T1: Annular disc bulge with unroofing of the disc posteriorly. No central canal stenosis. At least moderate bilateral neural foraminal encroachment. IMPRESSION: No acute findings involving the cervical spine. Moderately severe degenerative changes, as detailed above. Electronically signed by: Gabo De Jesus MD 04/13/25 21:38 PM
[2025-04-13] MEDS: GADOBUTROL 30ML VIAL IV ONE (21:44)
--- NOTE | 2025-04-13 21:54 | Magnetic Resonance Report ---
Exam(s): MRI T SPINE Without Contrast EXAM: MR Thoracic Spine Without Intravenous Contrast CLINICAL HISTORY: Bilateral lower extremity weakness. TECHNIQUE: Magnetic resonance images of the thoracic spine without intravenous contrast in multiple planes. COMPARISON: No relevant prior studies available. FINDINGS: Vertebrae: The vertebral bodies are intact without acute traumatic injury. There is subtle chronic anterior wedging at T7 and T10 levels. No anterolisthesis or retrolisthesis is noted. No abnormal STIR signal. There is abnormal Modic endplate changes at several intervertebral discs. There is multilevel disc spondylosis with narrowing and marginal hypertrophic changes, moderate to moderately severe throughout the thoracic spine from T5-6 inferiorly. There is also [id number] changes at T2-3 level. There is no effacement of the CSF collar. Discs/spinal canal/neural foramina: No posterior disc protrusion. No severe neural foraminal encroachment. Spinal cord: The thoracic cord demonstrates normal signal characteristics and contours. Soft tissues: No paraspinal soft tissue abnormality identified. IMPRESSION: Multilevel degenerative changes throughout the thoracic spine. No posterior disc protrusion or central canal stenosis identified. Electronically signed by: Gabo De Jesus MD 04/13/25 21:54 PM
--- NOTE | 2025-04-13 22:38 | Magnetic Resonance Report ---
Exam(s): MRI RIGHT FOOT W/WO Contrast EXAM: MR Right Lower Extremity Without and With Intravenous Contrast, Foot CLINICAL HISTORY: Reason for exam: r/o osteo. TECHNIQUE: Multiplanar magnetic resonance images of the right foot without and with intravenous contrast. COMPARISON: X-ray 04/13/2025 FINDINGS: Soft tissue ulcer subjacent to the first metatarsal head. Normal marrow signal. No acute osteomyelitis. No joint effusion. Diffuse subcutaneous soft tissue edema. No abscess or tenosynovitis. Increased signal in the muscles consistent with neuropathic changes. IMPRESSION: 1. No osteomyelitis. 2. Soft tissue ulcer along the plantar aspect of the first metatarsal head. 2. Diffuse cellulitis. Electronically signed by: Collin Kelley MD 04/13/25 22:37 PM
[2025-04-13] MEDS: VANCOMYCIN HCL 2,750 MG in SODIUM CHLORIDE 0.9% 500 ML IV ONE (22:59)
[2025-04-13] MEDS: CEFEPIME 1000MG 1,000 MG/10 ML SYR IV ONE (22:59)
[2025-04-13] MEDS: OLODATEROL HCL 2.5MCG/ACTUATION 60 PUFFS/INHALER INH SCH (23:00)
[2025-04-13] MEDS: FLUTICASONE FUROATE 200MCG 14 PUFFS/INHALER INH SCH (23:00)
[2025-04-13] MEDS: ATORVASTATIN 20 MG TAB PO SCH (23:28)
[2025-04-14] MEDS: ALBUTEROL HFA 8 GM INHALER INH PRN (01:06)
[2025-04-14] MEDS: ACETAMINOPHEN 325 MG TAB PO PRN (02:19)
[2025-04-14] MEDS ORDERED: MICONAZOLE NITRATE POWDER 85 GM EXT PRN (06:22)
[2025-04-14] MEDS: CEFEPIME 1000MG 1,000 MG/10 ML SYR IV SCH (08:43)
[2025-04-14] MEDS: VANCOMYCIN HCL / NSS 1,000 MG/270 ML BAG IV SCH (08:47)
--- NOTE | 2025-04-14 08:54 | Hospitalist Progress Note ---
Date of Service April 14, 2025 Assessment & Plan (1) SOB (shortness of breath) on exertion: (2) Diabetes mellitus, type 2: (3) Hx of urinary frequency: (4) Hx of hyperlipidemia: (5) History of hypertension: (6) History of asthma: (7) Chronic back pain: (8) Recurrent falls: (9) Bilateral leg weakness: Plan Per admitting provider w/ addendum: The patient is a 64-year-old male who presented to the ED on 04/13/2025 with complaints of bilateral lower extremity weakness and recurrent falls Bilateral lower extremity weakness Recurrent falls Advanced lumbosacral spondylosis Hx of chronic peripheral neuropathy in both feet Worsening over the past 3 weeks, lumbar MRI showed lumbosacral spondylosis, with multiple disc protrusions at different levels Ortho-spine consulted for further input, also pt reported upper extremity weakness, checked head MRI/cervical spine/thoracic spine MRI PT/OT Bilateral lower extremity cellulitis: Bilateral redness noted on lower extremities, completed a course of p.o. amoxicillin a week and a half ago Started IV Vanco/cefepime on admission, will cont. for now - blood cultures pending - procalcitonin/lactic acid wnl - consult wound care Right foot wound, rule out osteomyelitis: Check right foot x-ray and right foot MRI to rule out osteomyelitis - Foot MRI - 1. No osteomyelitis.2. Soft tissue ulcer along the plantar aspect of the first metatarsal head. 2. Diffuse cellulitis. - wound care consult Consider podiatry consult Hx asthma: Not in acute exacerbation, continue home inhalers Hx DM2: Managed on metformin - hold while inpt - SSI/4 times daily BGM - current A1c 8.2% Full code DVT prophylaxis: Lovenox Admission and Anticipated Discharge Date Admission Date: April 13, 2025 Subjective Pt seen in follow up of leg weakness Per chart review had a prolonged stay at outside hospital for nirmalo, after being on floor for 2-3 days Since his discharge reported recurrent falls On admission , spinal imaging was obtained and ortho-spine was consulted Also pt being worked up for poss. infection and was started on antibiotics Currently lying in bed in NAD, says he feels better since coming to the hospital Denies fever, chills, chest pain, shortness of breath, abd. pain, n/v Reports pain in his Left LE wound care consulted - awaiting eval Review of Systems Review of Systems: All systems reviewed & are unremarkable except as noted in Subjective Physical Exam Physical Exam: General: Morbidly obese M in NAD Eyes: PERRL, conjunctivae normal, not pale, anicteric sclerae, EOM intact bilaterally ENMT: External ear and nose normal Respiratory: Normal resp effort, not in distress, on room air, CTA b/l Cardiovascular: RRR S1 S2 Gastrointestinal (Abdomen): Abdomen is soft, +obese, non-tender to palpation, normal bowel sounds Musculoskeletal: Multiple wounds on LE (L>R) , + Wound right foot Skin: LE wounds. + left buttock wound Neurologic: Alert and oriented x 3, speech fluent, answers appropriately, no facial asymmetry, able to move extremities when lying in bed Results & Data Results & Data Vital Signs (Past 12 Hours) Vital Signs Temp Pulse Resp BP Pulse Ox O2 Del Method 04/14/25 07:54 36.7 C 71 18 103/58 L 92 Room Air 04/13/25 23:29 37.2 C 04/13/25 22:20 38.3 C H 93 H 18 152/84 H 93 Room Air Medications Administered Current Inpatient Medications Acetaminophen (Acetaminophen 325 Mg Tab) 650 mg PO Q4H PRN PRN Reason: pain/fever Stop: 05/13/25 18:11 Last Admin: 04/14/25 06:45 Dose: 650 mg Albuterol (Albuterol Hfa 8 Gm Inhaler) 2 puffs INH Q6H PRN PRN Reason: Shortness Of Breath Stop: 05/13/25 17:25 Last Admin: 04/14/25 06:47 Dose: 2 puffs Aspirin (Aspirin 81 Mg Ectab) 81 mg PO DAILY NICOL Stop: 05/14/25 08:59 Atorvastatin Calcium (Atorvastatin 20 Mg Tab) 20 mg PO HS NICOL Stop: 05/13/25 20:59 Last Admin: 04/13/25 23:28 Dose: 20 mg Dextrose (Dextrose 50% 50 Ml Syringe) 25 - 50 ml IV UD PRN; Protocol PRN Reason: Hypoglycemia Protocol Stop: 05/13/25 15:42 Enoxaparin Sodium (Enoxaparin Inj 40 Mg/0.4 Ml Syr) 40 mg SQ QAM NICOL Stop: 05/14/25 08:59 Fluticasone Furoate (Fluticasone Furoate 200mcg 14 Puffs/Inhaler) 1 puffs INH DAILY NICOL Stop: 05/13/25 20:59 Last Admin: 04/13/25 23:00 Dose: Not Given Glucagon (Glucagon For Inj 1 Mg Vial) 1 mg SQ UD PRN; Protocol PRN Reason: Hypoglycemia Protocol Stop: 05/13/25 15:42 Glucose (Glucose 40% Gel 15 Gm Tube) 15 - 30 gm PO UD PRN; Protocol PRN Reason: Hypoglycemia Protocol Stop: 05/13/25 15:42 Glucose (Glucose 10 Tab/Tube) 4 - 8 tab PO UD PRN; Protocol PRN Reason: Hypoglycemia Protocol Stop: 05/13/25 15:42 Cefepime HCl (Maxipime 2000mg) 1,000 mg in 10 mls @ 5 mls/min IV Q12H NICOL; Protocol Stop: 04/21/25 07:59 Last Admin: 04/14/25 08:43 Dose: 5 mls/min Vancomycin HCl (Vancomycin Hcl / Nss) 1,000 mg in 270 mls @ 200 mls/hr IV Q12H NICOL Stop: 04/21/25 07:59 Last Admin: 04/14/25 08:47 Dose: 200 mls/hr Insulin Aspart (Insulin Aspart Per Unit Charge) 0 units SC ACHS NICOL Stop: 05/13/25 16:29 Last Admin: 04/13/25 23:38 Dose: Not Given Lisinopril (Lisinopril 20 Mg Tab) 20 mg PO QAM NICOL Stop: 05/14/25 08:59 Miconazole Nitrate (Miconazole Nitrate Powder 85 Gm) 1 appln EXT PRN PRN PRN Reason: Affected Skin Folds Stop: 05/14/25 06:21 Miscellaneous (Carbohydrates For Hypoglycemia ) 15 - 30 gm PO UD PRN PRN Reason: Hypoglycemia Protocol Stop: 05/13/25 15:42 Miscellaneous Information (Vancomycin Consult Active) 1 each N/A UD PRN PRN Reason: Consult Stop: 05/13/25 16:21 Olodaterol (Olodaterol Hcl 2.5mcg/Actuation 60 Puffs/Inhaler) 2 puffs INH DAILY NICOL Stop: 05/13/25 20:59 Last Admin: 04/13/25 23:00 Dose: Not Given
[2025-04-14] MEDS: ASPIRIN 81 MG ECTAB PO SCH (09:00)
[2025-04-14 09:43] LABS: Anion Gap 6.0 (3-11); Blood Urea Nitrogen 10.0 mg/dl (6-23); Calcium 8.1 mg/dl (8.6-10.3); Carbon Dioxide 27.0 mmol/L (21-32); Chloride 100.0 mmol/L (98-107); Creatinine Clr Calc Pharmacy 91.7 ml/min; Glucose 256.0 mg/dl (70-99(Fasting)); Magnesium 1.6 mg/dl (1.7-2.4); Potassium 4.1 mmol/L (3.5-5.1); Sodium 133.0 mmol/L (136-145)
[2025-04-14] MEDS: ENOXAPARIN INJ 40 MG/0.4 ML SYR SQ SCH (10:26)
[2025-04-14] MEDS: ADVANCED PROBIOTIC 625 MG CAPSULE PO SCH (10:26)
--- NOTE | 2025-04-14 10:59 | XRay Report ---
XR cervical spine w flex/ext CLINICAL HISTORY: eval for instability COMPARISON STUDY: MRI of 04/13/2025 FINDINGS: There is severe diffuse degenerative disc disease. There is grade 1 anterolisthesis of C3 o n C4 and C7 on T1. No fracture seen. No abnormal translation seen with flexion and extension. There a re carotid bulb calcifications. IMPRESSION: Severe degenerative changes. ACT 112: Negative or not required by law. Electronically signed by: Gary Lujan M.D. 04/14/2025 10:58 AM
--- NOTE | 2025-04-14 14:31 | Orthopedic Progress Note ---
Date of Service April 14, 2025 Assessment & Plan (1) Peripheral neuropathy: (2) Lumbar radiculopathy: (3) Lumbar spondylosis: (4) Recurrent falls: (5) Bilateral leg weakness: Plan No surgery planned for spine, recommend PT and strengthening, pain control, possible referal to pain management as outpatient for interventional spine procedures for pain control. Discussed his degenerative changes however no severe central canal stenosis or cord compression. C spine xrays show no instability. Falls likely more due to possible infection and his generalized deconditioning rather than his spine. Will be available if any changes in symptoms. Subjective Patient seen and examined, doing better today. He states he was able to walk with PT using a rolling walker with no difficulty. Remains neurologically intact, voiding ok. Review of Systems All systems reviewed & are unremarkable except as noted in HPI & below. Physical Exam 5/5 strength L2-S1 myotomes Leg wounds bandaged, sensation at baseline Results & Data Results & Data Laboratory Results . Diagnostic Findings MRI C spine and T spine reviewed, diffuse degenerative changes with foraminal stenosis, no cord compression noted, adequate CSF around cord, tightest at C5-6 but no cord edema or deformation PG Care Time/CCT Total # of Minutes Spent Total Time Spent with Patient: Total time spent is greater than 50% in coordination of care (as documented) at patient's floor/unit and/or counseling patient: Coding Level of Care Code 68176 SUB INP/OBS CARE 2/35MIN Diagnoses Peripheral polyneuropathy G62.9 Peripheral neuropathy type: polyneuropathy, unspecified Lumbar radiculopathy M54.16 Lumbar spondylosis M47.816 Recurrent falls R29.6 Bilateral leg weakness R29.898 (1) Peripheral neuropathy Peripheral neuropathy type: polyneuropathy, unspecified Qualified Code(s): G62.9 - Polyneuropathy, unspecified
--- NOTE | 2025-04-14 15:06 | Pharmacy Report ---
Pharmacy PK ABX Note - Date of Service April 14, 2025 - Assessment and Plan Assessment 64 year old M receiving vancomycin and cefepime for treatment of bilateral lower extremity cellulitis.--failed outpatient treatment with amoxicillin (course completed ~1.5 weeks ago). Osteomyelitis of the foot ruled out with x-ray/MRI * Pertinent microbiologic data includes: urine and blood cultures x 2 from 04/13 are pending. * leukocytosis and febrile on admit, normal procal. Day # 2 of antimicrobial therapy. Plan Vancomycin * Loading dose: 2750 mg IV x 1 * Maintenance dose: 1000 mg IV every 12 hours * Regimen is predicted to achieve target AUC/MILLY of 400-600 mg/L.hr * Random level ordered for: 04/15/25 at 0700. Pharmacy will continue to follow and will adjust dose/frequency as necessary. Thank you. Pharmacy has transitioned to AUC monitoring for vancomycin. AUC/MILLY is the preferred PK/PD target and is associated with decreased risk of nephrotoxicity compared to traditional trough targets.
[2025-04-14] MEDS: CEFEPIME 2000MG 2,000 MG/20 ML SYR IV SCH (21:18)
[2025-04-15 07:04] LABS: Hematocrit (blood only) 33.8 % (42.0-52.0); Hemoglobin 10.9 g/dl (14.0-18.0); Mean Corpuscular Hemoglobin 27.2 pg (25.0-34.0); Mean Corpuscular Volume 84.3 fL (80.0-100.0); Platelet Count 291 K/uL (130-400); RDW Standard Deviation 42.6 fL (36.4-46.3); Red Blood Count 4.01 M/uL (4.70-6.10); White Blood Count 6.57 K/ul (4.8-10.8)
[2025-04-15 07:21] LABS: Anion Gap 5.0 (3-11); Blood Urea Nitrogen 12.0 mg/dl (6-23); Calcium 8.2 mg/dl (8.6-10.3); Carbon Dioxide 28.0 mmol/L (21-32); Chloride 102.0 mmol/L (98-107); Creatinine Clr Calc Pharmacy 87.5 ml/min; Glucose 167.0 mg/dl (70-99(Fasting)); Magnesium 1.8 mg/dl (1.7-2.4); Potassium 3.8 mmol/L (3.5-5.1); Sodium 135.0 mmol/L (136-145)
[2025-04-15] MEDS: VANCOMYCIN LEVEL ONE (08:28)
--- NOTE | 2025-04-15 08:58 | Hospitalist Progress Note ---
Date of Service April 15, 2025 Assessment & Plan (1) SOB (shortness of breath) on exertion: (2) Diabetes mellitus, type 2: (3) Hx of urinary frequency: (4) Hx of hyperlipidemia: (5) History of hypertension: (6) History of asthma: (7) Chronic back pain: (8) Recurrent falls: (9) Bilateral leg weakness: Plan Per admitting provider w/ addendum: The patient is a 64-year-old male who presented to the ED on 04/13/2025 with complaints of bilateral lower extremity weakness and recurrent falls Bilateral lower extremity weakness Recurrent falls Advanced lumbosacral spondylosis Hx of chronic peripheral neuropathy in both feet Worsening over the past 3 weeks, lumbar MRI showed lumbosacral spondylosis, with multiple disc protrusions at different levels Ortho-spine consulted for further input, also pt reported upper extremity weakness, checked head MRI/cervical spine/thoracic spine MRI -Per ortho spine - No surgery planned for spine, recommend PT and strengthening, pain control, possible referral to pain management as outpatient for interventional spine procedures for pain control. Discussed his degenerative changes however no severe central canal stenosis or cord compression. C spine xrays show no instability. Falls likely more due to possible infection and his generalized deconditioning rather than his spine. Will be available if any changes in symptoms. PT/OT Bilateral lower extremity cellulitis: Bilateral redness noted on lower extremities, completed a course of p.o. amoxicillin a week and a half ago - presented w/ elevated WBC, now normalized Started IV Vanco/cefepime on admission, will cont. for now - blood cultures pending - procalcitonin/lactic acid wnl - consult wound care (unable to be seen yesterday as pt was getting more images done) Right foot wound, rule out osteomyelitis: Check right foot x-ray and right foot MRI to rule out osteomyelitis - Foot MRI - 1. No osteomyelitis.2. Soft tissue ulcer along the plantar aspect of the first metatarsal head. 2. Diffuse cellulitis. - wound care consult Consider podiatry consult Hx asthma: Not in acute exacerbation, continue home inhalers Hx DM2: Managed on metformin - hold while inpt - SSI/4 times daily BGM - current A1c 8.2% - discussed pt needs to follow up closely w/ pcp Full code DVT prophylaxis: Lovenox Admission and Anticipated Discharge Date Admission Date: April 13, 2025 Subjective Pt seen in follow up of leg weakness Per chart review had a prolonged stay at outside hospital for rhabdo, after being on floor for 2-3 days Since his discharge reported recurrent falls On admission , spinal imaging was obtained and ortho-spine was consulted Also pt being worked up for poss. infection and was started on antibiotics Currently sitting up at the edge of the bed in [facility], says he feels better since coming to the hospital Denies fever, chills, chest pain, shortness of breath, abd. pain, n/v Reports pain in his Left LE wound care consulted - awaiting eval discussed w/ RN at the bedside Review of Systems Review of Systems: All systems reviewed & are unremarkable except as noted in Subjective Physical Exam Physical Exam: General: Morbidly obese M in NAD Eyes: PERRL, conjunctivae normal, not pale, anicteric sclerae, EOM intact bilaterally ENMT: External ear and nose normal Respiratory: Normal resp effort, not in distress, on room air, CTA b/l Cardiovascular: RRR S1 S2 Gastrointestinal (Abdomen): Abdomen is soft, +obese, non-tender to palpation, normal bowel sounds Musculoskeletal: Multiple wounds on LE (L>R) , + Wound right foot Skin: LE wounds. + left buttock wound Neurologic: Alert and oriented x 3, speech fluent, answers appropriately, no facial asymmetry, able to move extremities when lying in bed Results & Data Results & Data Vital Signs (Past 12 Hours) Vital Signs Temp Pulse Resp BP BP Pulse Ox O2 Del Method 04/15/25 08:03 36.7 C 68 18 151/76 H 93 Room Air 04/14/25 23:36 37.1 C 72 18 107/63 92 Room Air 04/14/25 21:10 Room Air Laboratory Results 04/15/25 04/15/25 04/14/25 Range/Units 07:28 06:36 20:30 WBC 6.57 (4.8-10.8) K/ul RBC 4.01 L (4.70-6.10) M/uL Hgb 10.9 L (14.0-18.0) g/dl Hct 33.8 L (42.0-52.0) % MCV 84.3 (80.0-100.0) fL MCH 27.2 (25.0-34.0) pg MCHC 32.2 (32.0-36.0) g/dL RDW Std Deviation 42.6 (36.4-46.3) fL RDW Coeff of Yane 13.8 (11.5-14.5) % Plt Count 291 (130-400) K/uL MPV 8.6 L (9.4-12.4) fL Sodium 135 L (136-145) mmol/L Potassium 3.8 (3.5-5.1) mmol/L Chloride 102 (98-107) mmol/L Carbon Dioxide 28 (21-32) mmol/L Anion Gap 5 (3-11) BUN 12 (6-23) mg/dl Creatinine 1.08 (0.6-1.4) mg/dl Est Cr Clr Drug Dosing 87.5 ml/min eGFR 76.16 BUN/Creatinine Ratio 11.1 (10-20) Glucose 167 H (70-99(Fasting)) mg/dl POC Glucose 168 H 155 H (70-99) mg/dl Calcium 8.2 L (8.6-10.3) mg/dl Phosphorus 3.3 (2.5-4.9) mg/dl Magnesium 1.8 (1.7-2.4) mg/dl Random Vancomycin 11.0 (10-20) mcg/ml 04/14/25 04/14/25 04/14/25 Range/Units 16:35 11:28 09:07 WBC (4.8-10.8) K/ul RBC (4.70-6.10) M/uL Hgb (14.0-18.0) g/dl Hct (42.0-52.0) % MCV (80.0-100.0) fL MCH (25.0-34.0) pg MCHC (32.0-36.0) g/dL RDW Std Deviation (36.4-46.3) fL RDW Coeff of Yane (11.5-14.5) % Plt Count (130-400) K/uL MPV (9.4-12.4) fL Sodium 133 L (136-145) mmol/L Potassium 4.1 (3.5-5.1) mmol/L Chloride 100 (98-107) mmol/L Carbon Dioxide 27 (21-32) mmol/L Anion Gap 6 (3-11) BUN 10 (6-23) mg/dl Creatinine 1.03 (0.6-1.4) mg/dl Est Cr Clr Drug Dosing 91.7 ml/min eGFR 80.61 BUN/Creatinine Ratio 9.7 L (10-20) Glucose 256 H (70-99(Fasting)) mg/dl POC Glucose 157 H 217 H (70-99) mg/dl Calcium 8.1 L (8.6-10.3) mg/dl Phosphorus 3.1 (2.5-4.9) mg/dl Magnesium 1.6 L (1.7-2.4) mg/dl Random Vancomycin (10-20) mcg/ml Medications Administered Current Inpatient Medications Acetaminophen (Acetaminophen 325 Mg Tab) 650 mg PO Q4H PRN PRN Reason: pain/fever Stop: 05/13/25 18:11 Last Admin: 04/15/25 03:41 Dose: 650 mg Albuterol (Albuterol Hfa 8 Gm Inhaler) 2 puffs INH Q6H PRN PRN Reason: Shortness Of Breath Stop: 05/13/25 17:25 Last Admin: 04/14/25 06:47 Dose: 2 puffs Aspirin (Aspirin 81 Mg Ectab) 81 mg PO DAILY NICOL Stop: 05/14/25 08:59 Last Admin: 04/14/25 09:00 Dose: 81 mg Atorvastatin Calcium (Atorvastatin 20 Mg Tab) 20 mg PO HS NICOL Stop: 05/13/25 20:59 Last Admin: 04/14/25 21:18 Dose: 20 mg Dextrose (Dextrose 50% 50 Ml Syringe) 25 - 50 ml IV UD PRN; Protocol PRN Reason: Hypoglycemia Protocol Stop: 05/13/25 15:42 Enoxaparin Sodium (Enoxaparin Inj 40 Mg/0.4 Ml Syr) 40 mg SQ QAM NICOL Stop: 05/14/25 08:59 Last Admin: 04/14/25 10:26 Dose: 40 mg Fluticasone Furoate (Fluticasone Furoate 200mcg 14 Puffs/Inhaler) 1 puffs INH DAILY NICOL Stop: 05/13/25 20:59 Last Admin: 04/14/25 08:59 Dose: 1 puffs Glucagon (Glucagon For Inj 1 Mg Vial) 1 mg SQ UD PRN; Protocol PRN Reason: Hypoglycemia Protocol Stop: 05/13/25 15:42 Glucose (Glucose 40% Gel 15 Gm Tube) 15 - 30 gm PO UD PRN; Protocol PRN Reason: Hypoglycemia Protocol Stop: 05/13/25 15:42 Glucose (Glucose 10 Tab/Tube) 4 - 8 tab PO UD PRN; Protocol PRN Reason: Hypoglycemia Protocol Stop: 05/13/25 15:42 Vancomycin HCl (Vancomycin Hcl / Nss) 1,000 mg in 270 mls @ 200 mls/hr IV Q12H NICOL Stop: 04/21/25 07:59 Last Infusion: 04/14/25 21:10 Dose: Infused Cefepime HCl (Maxipime 2000mg) 2,000 mg in 20 mls @ 5 mls/min IV Q12H NICOL; Protocol Stop: 04/21/25 20:59 Last Admin: 04/14/25 21:18 Dose: 5 mls/min Insulin Aspart (Insulin Aspart Per Unit Charge) 0 units SC ACHS NICOL Stop: 05/13/25 16:29 Last Admin: 04/15/25 08:34 Dose: 6 units Lactobacillus Acidophilus (Advanced Probiotic 625 Mg Capsule) 1,250 mg PO DAILY NICOL Stop: 05/14/25 09:14 Last Admin: 04/14/25 10:26 Dose: 1,250 mg Lisinopril (Lisinopril 20 Mg Tab) 20 mg PO QAM NICOL Stop: 05/14/25 08:59 Last Admin: 04/14/25 10:26 Dose: 20 mg Miconazole Nitrate (Miconazole Nitrate Powder 85 Gm) 1 appln EXT PRN PRN PRN Reason: Affected Skin Folds Stop: 05/14/25 06:21 Miscellaneous (Carbohydrates For Hypoglycemia ) 15 - 30 gm PO UD PRN PRN Reason: Hypoglycemia Protocol Stop: 05/13/25 15:42 Miscellaneous Information (Vancomycin Consult Active) 1 each N/A UD PRN PRN Reason: Consult Stop: 05/13/25 16:21 Olodaterol (Olodaterol Hcl 2.5mcg/Actuation 60 Puffs/Inhaler) 2 puffs INH DAILY NICOL Stop: 05/13/25 20:59 Last Admin: 04/14/25 09:00 Dose: 2 puffs
--- NOTE | 2025-04-15 09:26 | Pharmacy Report ---
Pharmacy PK ABX Note - Date of Service April 15, 2025 - Assessment and Plan Assessment 04/15: Day #3 vancomycin. Blood cultures no growth to date. Urine culture (+) proteus mirabilis. Renal function stable. Random vanc level drawn appropriately this AM (~11h level)- 11mcg/mL. 04/14: 64 year old M receiving vancomycin and cefepime for treatment of bilateral lower extremity cellulitis.--failed outpatient treatment with amoxicillin (course completed ~1.5 weeks ago). Osteomyelitis of the foot ruled out with x- ray/MRI * Pertinent microbiologic data includes: urine and blood cultures x 2 from 04/13 are pending. * leukocytosis and febrile on admit, normal procal. Day # 2 of antimicrobial therapy. Plan Vancomycin * Current regimen: vancomycin 1gm IV q12h * Vanc level this AM, 11mcg/mL predicted to achieve ssAUC 476mg/L.hr - therapeutic. * Continue vancomycin 1gm IV q12h * Repeat level in 48h or sooner if clinically indicated Pharmacy will continue to follow and will adjust dose/frequency as necessary. Thank you. Pharmacy has transitioned to AUC monitoring for vancomycin. AUC/MILLY is the preferred PK/PD target and is associated with decreased risk of nephrotoxicity compared to traditional trough targets.
[2025-04-15] MEDS: MAGNESIUM SULFATE / D5W 1 GM/100 ML BAG IV ONE (10:49)
[2025-04-15] MEDS: GABAPENTIN 100 MG CAP PO SCH (20:25)
[2025-04-16 06:27] LABS: Hematocrit (blood only) 34.4 % (42.0-52.0); Hemoglobin 11.1 g/dl (14.0-18.0); Mean Corpuscular Hemoglobin 27.4 pg (25.0-34.0); Mean Corpuscular Volume 84.9 fL (80.0-100.0); Platelet Count 296 K/uL (130-400); RDW Standard Deviation 42.7 fL (36.4-46.3); Red Blood Count 4.05 M/uL (4.70-6.10); White Blood Count 6.49 K/ul (4.8-10.8)
[2025-04-16 06:51] LABS: Anion Gap 6.0 (3-11); Blood Urea Nitrogen 12.0 mg/dl (6-23); Calcium 8.3 mg/dl (8.6-10.3); Carbon Dioxide 26.0 mmol/L (21-32); Chloride 102.0 mmol/L (98-107); Creatinine Clr Calc Pharmacy 103.8 ml/min; Glucose 174.0 mg/dl (70-99(Fasting)); Magnesium 2.0 mg/dl (1.7-2.4); Potassium 4.4 mmol/L (3.5-5.1); Sodium 134.0 mmol/L (136-145)
--- NOTE | 2025-04-16 10:35 | Hospitalist Progress Note ---
Date of Service April 16, 2025 Assessment & Plan (1) SOB (shortness of breath) on exertion: (2) Diabetes mellitus, type 2: (3) Hx of urinary frequency: (4) Hx of hyperlipidemia: (5) History of hypertension: (6) History of asthma: (7) Chronic back pain: (8) Recurrent falls: (9) Bilateral leg weakness: Plan Per admitting provider w/ addendum: The patient is a 64-year-old male who presented to the ED on 04/13/2025 with complaints of bilateral lower extremity weakness and recurrent falls Bilateral lower extremity weakness Recurrent falls Advanced lumbosacral spondylosis Hx of chronic peripheral neuropathy in both feet Worsening over the past 3 weeks, lumbar MRI showed lumbosacral spondylosis, with multiple disc protrusions at different levels Ortho-spine consulted for further input, also pt reported upper extremity weakness, checked head MRI/cervical spine/thoracic spine MRI -Per ortho spine - No surgery planned for spine, recommend PT and strengthening, pain control, possible referral to pain management as outpatient for interventional spine procedures for pain control. Discussed his degenerative changes however no severe central canal stenosis or cord compression. C spine xrays show no instability. Falls likely more due to possible infection and his generalized deconditioning rather than his spine. Will be available if any changes in symptoms. PT/OT Bilateral lower extremity cellulitis: Bilateral redness noted on lower extremities, completed a course of p.o. amoxicillin a week and a half ago - presented w/ elevated WBC, now normalized Started IV Vanco/cefepime on admission, will cont. for now - blood cultures pending - procalcitonin/lactic acid wnl - wound care consulted Right foot wound, ruled out osteomyelitis: Check right foot x-ray and right foot MRI to rule out osteomyelitis - Foot MRI - 1. No osteomyelitis.2. Soft tissue ulcer along the plantar aspect of the first metatarsal head. 2. Diffuse cellulitis. - wound care consult Consider podiatry consult Poss UTI - Ucultx 50,000 cfu/ml Proteus mirabilis - pt already on abx, as above Hx asthma: Not in acute exacerbation, continue home inhalers Hx DM2: Managed on metformin - hold while inpt - SSI/4 times daily BGM - current A1c 8.2% - discussed pt needs to follow up closely w/ pcp Full code DVT prophylaxis: Lovenox Admission and Anticipated Discharge Date Admission Date: April 13, 2025 Subjective Pt seen in follow up of leg weakness Per chart review had a prolonged stay at outside hospital for rhabdo, after being on floor for ~2 days Since his discharge reported recurrent falls On admission , spinal imaging was obtained and ortho-spine was consulted Also pt being worked up for poss. infection and was started on antibiotics Currently sitting up in chair in NAD, says he feels better since coming to the hospital Denies fever, chills, chest pain, shortness of breath, abd. pain, n/v wound care consulted - awaiting eval Review of Systems 2 Review of Systems: All systems reviewed & are unremarkable except as noted in Subjective Physical Exam Physical Exam: General: Morbidly obese M in NAD Eyes: PERRL, conjunctivae normal, not pale, anicteric sclerae, EOM intact bilaterally ENMT: External ear and nose normal Respiratory: Normal resp effort, not in distress, on room air, CTA b/l Cardiovascular: RRR S1 S2 Gastrointestinal (Abdomen): Abdomen is soft, +obese, non-tender to palpation, normal bowel sounds Musculoskeletal: Multiple wounds on LE (L>R) , + Wound right foot Skin: LE wounds. + left buttock wound Neurologic: Alert and oriented x 3, speech fluent, answers appropriately, no facial asymmetry, able to move extremities Results & Data Results & Data Vital Signs (Past 12 Hours) Vital Signs Temp Pulse Resp BP BP Pulse Ox O2 Del Method 04/16/25 07:45 36.7 C 64 18 154/91 H 94 Room Air 04/15/25 23:58 70 18 155/90 H 96 Room Air Laboratory Results 04/16/25 04/16/25 04/15/25 Range/Units 07:39 06:07 20:27 WBC 6.49 (4.8-10.8) K/ul RBC 4.05 L (4.70-6.10) M/uL Hgb 11.1 L (14.0-18.0) g/dl Hct 34.4 L (42.0-52.0) % MCV 84.9 (80.0-100.0) fL MCH 27.4 (25.0-34.0) pg MCHC 32.3 (32.0-36.0) g/dL RDW Std Deviation 42.7 (36.4-46.3) fL RDW Coeff of Yane 13.7 (11.5-14.5) % Plt Count 296 (130-400) K/uL MPV 8.7 L (9.4-12.4) fL Sodium 134 L (136-145) mmol/L Potassium 4.4 (3.5-5.1) mmol/L Chloride 102 (98-107) mmol/L Carbon Dioxide 26 (21-32) mmol/L Anion Gap 6 (3-11) BUN 12 (6-23) mg/dl Creatinine 0.91 (0.6-1.4) mg/dl Est Cr Clr Drug Dosing 103.8 ml/min eGFR 93.53 BUN/Creatinine Ratio 13.2 (10-20) Glucose 174 H (70-99(Fasting)) mg/dl POC Glucose 176 H 157 H (70-99) mg/dl Calcium 8.3 L (8.6-10.3) mg/dl Phosphorus 3.4 (2.5-4.9) mg/dl Magnesium 2.0 (1.7-2.4) mg/dl 04/15/25 04/15/25 Range/Units 16:40 11:32 WBC (4.8-10.8) K/ul RBC (4.70-6.10) M/uL Hgb (14.0-18.0) g/dl Hct (42.0-52.0) % MCV (80.0-100.0) fL MCH (25.0-34.0) pg MCHC (32.0-36.0) g/dL RDW Std Deviation (36.4-46.3) fL RDW Coeff of Yane (11.5-14.5) % Plt Count (130-400) K/uL MPV (9.4-12.4) fL Sodium (136-145) mmol/L Potassium (3.5-5.1) mmol/L Chloride (98-107) mmol/L Carbon Dioxide (21-32) mmol/L Anion Gap (3-11) BUN (6-23) mg/dl Creatinine (0.6-1.4) mg/dl Est Cr Clr Drug Dosing ml/min eGFR BUN/Creatinine Ratio (10-20) Glucose (70-99(Fasting)) mg/dl POC Glucose 170 H 219 H (70-99) mg/dl Calcium (8.6-10.3) mg/dl Phosphorus (2.5-4.9) mg/dl Magnesium (1.7-2.4) mg/dl Medications Administered Current Inpatient Medications Acetaminophen (Acetaminophen 325 Mg Tab) 650 mg PO Q4H PRN PRN Reason: pain/fever Stop: 05/13/25 18:11 Last Admin: 04/15/25 14:24 Dose: 650 mg Albuterol (Albuterol Hfa 8 Gm Inhaler) 2 puffs INH Q6H PRN PRN Reason: Shortness Of Breath Stop: 05/13/25 17:25 Last Admin: 04/14/25 06:47 Dose: 2 puffs Aspirin (Aspirin 81 Mg Ectab) 81 mg PO DAILY NICOL Stop: 05/14/25 08:59 Last Admin: 04/16/25 09:16 Dose: 81 mg Atorvastatin Calcium (Atorvastatin 20 Mg Tab) 20 mg PO HS NICOL Stop: 05/13/25 20:59 Last Admin: 04/15/25 20:26 Dose: 20 mg Dextrose (Dextrose 50% 50 Ml Syringe) 25 - 50 ml IV UD PRN; Protocol PRN Reason: Hypoglycemia Protocol Stop: 05/13/25 15:42 Enoxaparin Sodium (Enoxaparin Inj 40 Mg/0.4 Ml Syr) 40 mg SQ QAM NICOL Stop: 05/14/25 08:59 Last Admin: 04/16/25 09:17 Dose: 40 mg Fluticasone Furoate (Fluticasone Furoate 200mcg 14 Puffs/Inhaler) 1 puffs INH DAILY NICOL Stop: 05/13/25 20:59 Last Admin: 04/16/25 09:40 Dose: 1 puffs Gabapentin (Gabapentin 100 Mg Cap) 200 mg PO HS NICOL Stop: 05/15/25 20:59 Last Admin: 04/15/25 20:25 Dose: 200 mg Glucagon (Glucagon For Inj 1 Mg Vial) 1 mg SQ UD PRN; Protocol PRN Reason: Hypoglycemia Protocol Stop: 05/13/25 15:42 Glucose (Glucose 40% Gel 15 Gm Tube) 15 - 30 gm PO UD PRN; Protocol PRN Reason: Hypoglycemia Protocol Stop: 05/13/25 15:42 Glucose (Glucose 10 Tab/Tube) 4 - 8 tab PO UD PRN; Protocol PRN Reason: Hypoglycemia Protocol Stop: 05/13/25 15:42 Vancomycin HCl (Vancomycin Hcl / Nss) 1,000 mg in 270 mls @ 200 mls/hr IV Q12H [facility] Stop: 04/21/25 07:59 Last Admin: 04/16/25 08:29 Dose: 200 mls/hr Cefepime HCl (Maxipime 2000mg) 2,000 mg in 20 mls @ 5 mls/min IV Q12H [facility]; Protocol Stop: 04/21/25 20:59 Last Admin: 04/16/25 08:24 Dose: 5 mls/min Insulin Aspart (Insulin Aspart Per Unit Charge) 0 units SC ACHS NICOL Stop: 05/13/25 16:29 Last Admin: 04/16/25 08:20 Dose: 8 units Lactobacillus Acidophilus (Advanced Probiotic 625 Mg Capsule) 1,250 mg PO DAILY [facility] Stop: 05/14/25 09:14 Last Admin: 04/16/25 09:16 Dose: 1,250 mg Lisinopril (Lisinopril 20 Mg Tab) 20 mg PO QAM NICOL Stop: 05/14/25 08:59 Last Admin: 04/16/25 09:16 Dose: 20 mg Miconazole Nitrate (Miconazole Nitrate Powder 85 Gm) 1 appln EXT PRN PRN PRN Reason: Affected Skin Folds Stop: 05/14/25 06:21 Miscellaneous (Carbohydrates For Hypoglycemia ) 15 - 30 gm PO UD PRN PRN Reason: Hypoglycemia Protocol Stop: 05/13/25 15:42 Miscellaneous Information (Vancomycin Consult Active) 1 each N/A UD PRN PRN Reason: Consult Stop: 05/13/25 16:21 Olodaterol (Olodaterol Hcl 2.5mcg/Actuation 60 Puffs/Inhaler) 2 puffs INH DAILY NICOL Stop: 05/13/25 20:59 Last Admin: 04/16/25 09:40 Dose: 2 puffs
[2025-04-16] MEDS: GABAPENTIN 100 MG CAP PO ONE (18:20)
[2025-04-17 07:36] VITALS: O2SAT 93
[2025-04-17 07:50] LABS: Creatinine Clr Calc Pharmacy 98.4 ml/min
[2025-04-17 15:04] VITALS: RESP 18; TEMP 97.9
--- NOTE | 2025-04-17 16:08 | Discharge Summary ---
Date of Service April 17, 2025 Admission HPI Per Admitting Provider The patient is a 64-year-old male with a past medical history of HLD, DM2, on oral diabetic medications, HTN, asthma who presents to the ED on 04/13/2025 with complaints of worsening bilateral lower extremity weakness and recurrent falls over the past 3 weeks. Patient reported his first fall being about 3 weeks ago and subsequently having another fall 2 weeks ago that required an emergency room visit to [facility]. He reported that they x-rayed his entire spine and there were no acute injuries. He did report that they had to cut his jeans all since he was lying on the floor for over 2 hours at that point and due to skin breakdown, he did have some raw skin on his left leg after his close were removed. Overall, his weakness remained about the same. He reports feeling like his legs just give out when he walks. He reported yesterday that the weakness became worse. He fell yesterday and laid on the ground for about an hour. He then started to report that he was having some upper extremity we akness as well. He was placed on amoxicillin for 10 days following his ER visit at [facility] for his leg wound. He reports minimal improvement with that. Reports his sugars have overall been controlled. He denies any numbness/tingling. He denies any shortness of breath/chest pain/fever/chills/nausea/vomiting/diarrhea/abdominal pain. He does not smoke. Denies any alcohol use. On arrival to the ED, for WBC 15, hemoglobin 11, neutrophils 12.76, sodium 133, glucose 174, T CK3 19, urinalysis fairly unremarkable. On exam, patient had bilateral lower extremity redness consistent with possible cellulitis and a right toe callus that he reports has been present for months. Denies any pain associated with this. Patient had a lumbar MRI that showed: T12-L1: There is broad-based posterior disc bulge. No significant acquired compromise of the central canal is seen. Lateral disc bulges causing bilateral subarticular stenosis. In conjunction with facet arthropathy there is mild right and moderate left neural foraminal stenosis. L1-L2: There is broad-based posterior disc bulge which abuts the transiting nerve roots. No significant central canal stenosis is seen. Lateral disc bulges cause bilateral subarticular stenosis. In conjunction with facet arthropathy there is moderate bilateral neural foraminal stenosis. L2-L3: There is broad-based posterior disc bulge which abuts the transiting nerve roots. No significant central canal stenosis is seen. There is a far lateral left-sided disc extrusion which causes subarticular stenosis and impinges on the exiting left L2 nerve root. There is a small right lateral disc bulge. In conjunction with facet arthropathy there is moderate left and mild right neural foraminal stenosis. L3-L4: There is broad-based posterior disc bulge with annular fissure which abuts the transiting nerve roots. In conjunction with hypertrophy of the ligamentum flavum there is mild to moderate central canal stenosis at this level with a minimum AP canal diameter of 6.5 mm. Far lateral disc bulges cause bilateral subarticular stenosis and may impinge on the exiting bilateral L3 nerve roots. In conjunction with facet arthropathy there is severe right and mild left neural foraminal stenosis. L4-L5: There is broad-based posterior disc bulge which abuts the descending nerve roots. There is mild central canal stenosis at this level with a minimum AP diameter of 8mm. There is a far left lateral disc extrusion in a right lateral disc bulge which causes bilateral subarticular stenosis. There is likely impingement on the exiting bilateral L4 nerve roots. In conjunction with facet arthropathy there is moderate to severe bilateral neural foraminal stenosis. L5-S1: There is a left posterolateral disc extrusion with annular fissure. No significant central canal stenosis is seen. The left lateral component of the disc bulge causes subarticular stenosis with impingement on the exiting left L5 nerve root. The right lateral disc bulge abuts the exiting right L5 nerve root. In conjunction with facet arthropathy there is severe left and moderate right neural foraminal stenosis. Sacrum: The imaged sacrum is normal in morphology and signal intensity. Soft tissues: There is mild fatty atrophy of the paraspinous musculature. The right kidney is not clearly identified. A subcentimeter left renal cyst is incidentally noted. The retroperitoneal structures are otherwise grossly unremarkable but incompletely evaluated. The patient will be admitted for further management of bilateral lower extremity weakness Admission Exam Per Admitting Provider General: Obese ill appearing man, having chills Eyes: PERRL, conjunctivae normal, not pale, anicteric sclerae, EOM intact bilaterally ENMT: External ear and nose normal, oropharynx normal Respiratory: Normal resp effort, not in distress, on room air, CTA b/l Cardiovascular: RRR S1 S2 Gastrointestinal (Abdomen): Abdomen is soft, non-tender to palpation, normal bowel sounds Musculoskeletal: Multiple wounds on LE (L>R) with stained dressing, erythematous skin and tenderness. Wound on plantar surface of right foot Skin: LE wounds. Unable to assess wound on buttock at this time as patient unable to turn Neurologic: Alert and oriented x 3, reduced power in LE, sensory deficits in feet Psych:Normal mood and affect Principal Diagnosis LE weakness,cellulitis , poss. UTI, pressure ulcer/s Discharge Exam General: Morbidly obese M in NAD Eyes: PERRL, conjunctivae normal, not pale, anicteric sclerae, EOM intact bilaterally ENMT: External ear and nose normal Respiratory: Normal resp effort, not in distress, on room air, CTA b/l Cardiovascular: RRR S1 S2 Gastrointestinal (Abdomen): Abdomen is soft, + obese, non-tender to palpation, normal bowel sounds Musculoskeletal: Multiple wounds on LE (L>R) , + Wound right foot Skin: LE wounds. + left buttock wound Neurologic: Alert and oriented x 3, speech fluent, answers appropriately, no facial asymmetry, able to move extremities Discharge Data Allergies Allergy/AdvReac Type Severity Reaction Status Date / Time celecoxib [From Celebrex] AdvReac Intermediate GI bleed Verified 04/13/25 17:40 COVID-19 (SARS-CoV-2) AdvReac Intermediate leg Verified 04/13/25 17:40 vaccine, harsha swelling/pain morphine AdvReac Intermediate NO EFFECT Verified 04/13/25 17:40 Sulfa (Sulfonamide AdvReac Intermediate BLEED Verified 04/13/25 17:40 Antibiotics) Consultations 04/13/25 15:03 ED Decision to Admit Stat 04/13/25 15:44 Consult Orthopedic Spine Surgery Routine Ordered Studies 04/13/25 13:06 MRI Lumbar Spine [MR lumbar spine wo con] Stat FINDINGS: Lumbar spine: Marrow signal intensity is heterogeneous. Vertebral body height is maintained throughout the lumbar spine. There is minimal retrolisthesis at L2- L3. Alignment is otherwise preserved. There is straightening of the lumbar lordosis. Anterior and lateral marginal osteophytes are seen throughout. There is no evidence of spondylolysis. The transverse and spinous processes appear intact. No destructive bony lesion is seen. Chronic degenerative endplate change is noted at all lumbar levels. There is mild endplate edema at T12-L1, L3-L4, L4-L5. Intervertebral discs: Disc desiccation is seen throughout the lumbar spine. There is moderate to severe loss of height at all lumbar levels. Spinal cord: The imaged spinal cord is normal in morphology and signal intensity. The conus medullaris terminates at the T12-L1 space. The nerve roots of the cauda equina are normal in morphology. T12-L1: There is broad-based posterior disc bulge. No significant acquired compromise of the central canal is seen. Lateral disc bulges causing bilateral subarticular stenosis. In conjunction with facet arthropathy there is mild right and moderate left neural foraminal stenosis. L1-L2: There is broad-based posterior disc bulge which abuts the transiting nerve roots. No significant central canal stenosis is seen. Lateral disc bulges cause bilateral subarticular stenosis. In conjunction with facet arthropathy there is moderate bilateral neural foraminal stenosis. L2-L3: There is broad-based posterior disc bulge which abuts the transiting nerve roots. No significant central canal stenosis is seen. There is a far lateral left-sided disc extrusion which causes subarticular stenosis and impinges on the exiting left L2 nerve root. There is a small right lateral disc bulge. In conjunction with facet arthropathy there is moderate left and mild right neural foraminal stenosis. L3-L4: There is broad-based posterior disc bulge with annular fissure which abuts the transiting nerve roots. In conjunction with hypertrophy of the ligamentum flavum there is mild to moderate central canal stenosis at this level with a minimum AP canal diameter of 6.5 mm. Far lateral disc bulges cause bilateral subarticular stenosis and may impinge on the exiting bilateral L3 nerve roots. In conjunction with facet arthropathy there is severe right and mild left neural foraminal stenosis. L4-L5: There is broad-based posterior disc bulge which abuts the descending nerve roots. There is mild central canal stenosis at this level with a minimum A P diameter of 8mm. There is a far left lateral disc extrusion in a right lateral disc bulge which causes bilateral subarticular stenosis. There is likely impingement on the exiting bilateral L4 nerve roots. In conjunction with facet arthropathy there is moderate to severe bilateral neural foraminal stenosis. L5-S1: There is a left posterolateral disc extrusion with annular fissure. No significant central canal stenosis is seen. The left lateral component of the disc bulge causes subarticular stenosis with impingement on the exiting left L5 nerve root. The right lateral disc bulge abuts the exiting right L5 nerve root. In conjunction with facet arthropathy there is severe left and moderate right neural foraminal stenosis. Sacrum: The imaged sacrum is normal in morphology and signal intensity. Soft tissues: There is mild fatty atrophy of the paraspinous musculature. The right kidney is not clearly identified. A subcentimeter left renal cyst is incidentally noted. The retroperitoneal structures are otherwise grossly unremarkable but incompletely evaluated. IMPRESSION: 1. Advanced lumbosacral spondylosis as above. See discussion for detailed level by level analysis. 2. Degenerative disc disease as above with associated endplate change. 3. No destructive bony lesion is seen. 04/13/25 15:42 CT head/brain wo con Stat Findings: Small areas of decreased attenuation are seen within the periventricular white matter, likely representing chronic small vessel ischemic disease. There is no definite sign of acute or old infarction. No intracranial hemorrhage is evident. No definite mass lesion is seen on this noncontrast examination. There is no midline shift or other form of herniation. No hydrocephalus is seen. There is cavum septum pellucidum and cavum vergae, normal variants No fracture is identified. The orbits and the visualized paranasal sinuses appear unremarkable. The mastoid air cells appear clear. Impression: 1. Suspected mild chronic small vessel ischemic disease 2. No definite acute pathology 04/13/25 16:21 MR brain wo con Routine FINDINGS: Brain: Cavum septum pellucidum. Diffusion-weighted imaging is negative for acute or subacute infarct. There are a few punctate areas of abnormal T2 signal in the deep cerebral white matter most consistent with mild small vessel ischemic/degenerative changes. No hemorrhage. Ventricles: Unremarkable. No ventriculomegaly. Bones/joints: Unremarkable. No acute fracture. Sinuses: Unremarkable as visualized. No acute sinusitis. Mastoid air cells: Unremarkable as visualized. No mastoid effusion. Orbits: Unremarkable as visualized. IMPRESSION: No evidence of acute or subacute infarct. MR foot RT wo/w con Routine FINDINGS: Soft tissue ulcer subjacent to the first metatarsal head. Normal marrow signal. No acute osteomyelitis. No joint effusion. Diffuse subcutaneous soft tissue edema. No abscess or tenosynovitis. Increased signal in the muscles consistent with neuropathic changes. IMPRESSION: 1. No osteomyelitis. 2. Soft tissue ulcer along the plantar aspect of the first metatarsal head. 2. Diffuse cellulitis. 04/13/25 18:36 MR cervical spine wo con Urgent FINDINGS: Vertebrae: Heterogeneous marrow signal noted involving the C3 through C6 vertebral bodies with suspected Modic endplate changes. There is reversal of the normal cervical lordosis, centered at C5 level. There is chronic anterior wedging involving C4 and C5 levels. There is 3 mm anterolisthesis involving C7 on T1 with mild unroofing of the disc posteriorly. No abnormal STIR signal to suggest an acute fracture. Spinal cord: The cervical cord is contoured by the cervical spine. However, there is normal signal of the cervical cord. Soft tissues: Unremarkable. DISCS/SPINAL CANAL/NEURAL FORAMINA: C2-C3: Unremarkable. No significant disc disease. No stenosis. C3-C4: C3-4: Diffuse disc marginal osteophyte complex identified with posterior hypertrophic changes. There is effacement of the ventral CSF collar without significant canal stenosis. There is severe right and moderate left neural foraminal encroachment. C4-C5: C4-5: Diffuse disc marginal osteophyte complex noted. There is effacement of the ventral CSF collar without significant canal stenosis. There is moderately severe right and moderate left neural foraminal encroachment. C5-C6: C5-6: Diffuse disc marginal osteophyte complex identified. There is moderate canal narrowing with minimal preservation of the CSF collar dorsally. The AP diameter of the canal measures 7.7 mm. There is severe left and moderately severe right neural foraminal encroachment. C6-C7: C6-7: Diffuse disc marginal osteophyte complex noted with broad-base posterior disc bulge, measuring approximately 3-4 mm. Severe bilateral neural foraminal encroachment. No stenosis. C7-T1: Annular disc bulge with unroofing of the disc posteriorly. No central canal stenosis. At least moderate bilateral neural foraminal encroachment. IMPRESSION: No acute findings involving the cervical spine. Moderately severe degenerative changes, as detailed above. 04/13/25 18:39 MR thoracic spine wo con Urgent FINDINGS: Vertebrae: The vertebral bodies are intact without acute traumatic injury. There is subtle chronic anterior wedging at T7 and T10 levels. No anterolisthesis or retrolisthesis is noted. No abnormal STIR signal. There is abnormal Modic endplate changes at several intervertebral discs. There is multilevel disc spondylosis with narrowing and marginal hypertrophic changes, moderate to moderately severe throughout the thoracic spine from T5-6 inferiorly. There is also [id number] changes at T2-3 level. There is no effacement of the CSF collar. Discs/spinal canal/neural foramina: No posterior disc protrusion. No severe neural foraminal encroachment. Spinal cord: The thoracic cord demonstrates normal signal characteristics and contours. Soft tissues: No paraspinal soft tissue abnormality identified. IMPRESSION: Multilevel degenerative changes throughout the thoracic spine. No posterior disc protrusion or central canal stenosis identified. Hospital Course (1) SOB (shortness of breath) on exertion: (2) Diabetes mellitus, type 2: (3) Hx of urinary frequency: (4) Hx of hyperlipidemia: (5) History of hypertension: (6) History of asthma: (7) Chronic back pain: (8) Recurrent falls: (9) Bilateral leg weakness: Plan The patient is a 64-year-old male who presented to the ED on 04/13/2025 with complaints of bilateral lower extremity weakness and recurrent falls Bilateral lower extremity weakness Recurrent falls Advanced lumbosacral spondylosis Hx of chronic peripheral neuropathy in both feet Worsening over the past 3 weeks, lumbar MRI showed lumbosacral spondylosis, with multiple disc protrusions at different levels Ortho-spine consulted for further input, also pt reported upper extremity weakness, checked head MRI/cervical spine/thoracic spine MRI -Per ortho spine surgeon - No surgery planned for spine, recommend PT and strengthening, pain control, possible referral to pain management as outpatient for interventional spine procedures for pain control. Discussed his degenerative changes however no severe central canal stenosis or cord compression. C spine xrays show no instability. Falls likely more due to possible infection and his generalized deconditioning rather than his spine. Will be available if any changes in symptoms. PT/OT - consider outpt Neurology eval if w/o improvement Bilateral lower extremity cellulitis: Bilateral redness noted on lower extremities, completed a course of p.o. amoxicillin a week and a half ago - presented w/ elevated WBC, now normalized Started IV Vanco/cefepime on admission, cont. while inpt -> will DC on po cefuroxime - blood cultures negat. for 48 hrs - procalcitonin/lactic acid wnl - wound care consulted - pt needs to follow up w/ wound care as outpt Right foot wound, ruled out osteomyelitis: Right foot x-ray and right foot MRI to rule out osteomyelitis - Foot MRI - 1. No osteomyelitis.2. Soft tissue ulcer along the plantar aspect of the first metatarsal head. 2. Diffuse cellulitis. - wound care consulted, as above Consider podiatry consult as outpt Poss UTI - Ucultx 50,000 cfu/ml Proteus mirabilis - pt already on abx, as above Hx asthma: Not in acute exacerbation, continue home inhalers Hx DM2: Managed on metformin - hold while inpt - SSI/4 times daily BGM - current A1c 8.2% - discussed pt needs to follow up closely w/ pcp Morbid obesity - BMI 46.6, weight loss counselling provided, pt needs to further follow up w/ pcp Total Time Total Time Spent Total Time Spent (In Minutes): 25 Discharge Plan Discharge Items Patient Disposition: Home - Self-Care Reason For Visit: B/L LE WEAKNESS Discharge Diagnosis: LE weakness,cellulitis , poss. UTI, pressure ulcer/s Condition on Discharge: Fair Activity: Per Instructions section Non-emergency contact: Primary Care Provider Call non-emergency contact if: you have any medication questions and your symptoms worsen Follow-up/Referrals: Pastor Sheth MD [Primary Care Provider] - (Date & Time 04/24/2025 12:20 PM Provider: Obi Smith DO General Internal Medicine [facility] ) Diet: Carb Consistent or DM2 Addtl Attending Provider Instructions: Follow up with your primary care provider and wound care. You may need to follow up with a box office agent (foot doctor). You may also need to follow up with neurology. The appointment with your primary care doctor was scheduled for you for 04/24/2025. Finish antibiotic course as prescribed. Your diabetes is not well controlled, discuss with your primary care physician how to improve this. Also strongly recommend weight loss, recommend to discuss with your primary care doctor how you could further achieve this. You may benefit from seeing a dietitian/ public health technologist. Pending Studies at Discharge: Yes Studies:: final blood cultx results Stand-Alone Forms: [employer], Smoking Cessation Medications and DC Order Prescriptions: New gabapentin 100 mg Capsule 200 mg PO HS Qty: 30 0RF Advanced Probiotic 625 mg (10 billion cell) Capsule 1 cap PO DAILY Qty: 30 0RF cefuroxime axetil 250 mg tablet 250 mg PO BID 5 Days Qty: 10 0RF oxycodone 5 mg tablet 5 mg PO HS PRN (Reason: pain) Qty: 7 0RF Continued atorvastatin 20 mg Tablet 20 mg PO HS lisinopril 20 mg Tablet 20 mg PO QAM metformin 1,000 mg Tablet 1,000 mg PO BID Serevent Diskus 50 mcg/dose Blister With Device 1 inh INHALATION BID albuterol sulfate 90 mcg/actuation Hfa Aerosol Inhaler 2 puff INHALATION Q6H PRN (Reason: Shortness Of Breath) Pulmicort Flexhaler 180 mcg/actuation Aerosol Powdr Breath Activated 2 inh INHALATION BID aspirin 81 mg Tablet,Delayed Release (Dr/Ec) 81 mg PO DAILY Discharge Orders: Discharge Order (Routine); Ordered 04/17/25 Ordered By: Terrance Barcenas/Other Patient Handouts: Nutrition for Wound Healing, Managing Type 2 Diabetes Admission Data Admit Date/Time: 04/13/25 15:42 Attending Provider: Terrance Hines Admit Provider: Ana Yanez I. Primary Care Provider: Pastor Sheth Other Providers: Ana Yanez I.; Hugh Saenz
[2025-04-17 16:38] VITALS: BP 136/77; PULSE 95
[2025-04-17] MEDS: INFLUENZA VACC TS2025-26(65y+)/PF (IIV3) 0.5mL Syr IM ONE (18:06)
[2025-04-18] MEDS ORDERED: VANCOMYCIN LEVEL ONE (05:00)
== END 2025-04-17 18:38 | disposition home or self-care (01) | DRG 552 ==
LOC: ED 12:17 → SUATTDRO 15:42 → 3N 15:42